=== PATIENT | female | born 1955 | race Caucasian/White ===

== ENCOUNTER 2017-11-22 20:14 | Emergency (ER) | payer MEDICAID, SELFPAY ==
[2017-11-22 20:15] VITALS: BP 156/80; PULSE 70; RESP 22; TEMP 36.6; O2SAT 99; BMI 26.8
--- NOTE | 2017-11-22 20:19 | CT_ITS ---
STUDY: CT BRAIN WITHOUT CONTRAST REASON FOR EXAM: Female, 62 years old. Facial pain. RADIATION DOSAGE (If Supplied By Facility): CTDIvol = ( 44.99 ) mGy, DLP = ( 796.11 ) mGycm TECHNIQUE: Transaxial CT imaging of the brain was performed without administration of intravenous contrast material. COMPARISON: March 16, 2015 FINDINGS: Normal soft tissue structures. Normal calvarium. There are calcifications around the carotid artery. These are noted in the cavernous carotid arteries. There is mild cerebral atrophy with widening of the extra-axial spaces and ventricular dilatation. There are areas of decreased attenuation within the white matter tracts of the supratentorial brain, consistent with microvascular disease changes. Normal basal ganglia and thalami. Normal brainstem. There is mild cerebellar atrophy. There is no intracranial hemorrhage. There are no findings of an acute ischemic infarction. Normal visualized paranasal sinuses. CT/Brain/Head without Contrast IMPRESSION: Chronic involutional changes of the brain. There are no acute findings. Electronically Signed: Claudio Ibrahim MD at 21:40 EDT , Service support ,
--- NOTE | 2017-11-22 20:19 | CT_ITS ---
STUDY: CT FACIAL BONES WITHOUT CONTRAST REASON FOR EXAM: Female, 62 years old. FALL/ FACIAL PAIN AT NOSE AND MOUTH. No LOC. Pt has hx of MS. RADIATION DOSAGE (If Supplied By Facility): CTDIvol = ( 29.38 ) mGy, DLP = ( 570.73 ) mGycm TECHNIQUE: The patient was scanned in a multi detector CT scanner. Sagittal and coronal images were reconstructed. Individualized dose optimization techniques were used for this CT. COMPARISON: None. FINDINGS: Soft tissue swelling of the right maxilla. There is no underlying fracture. Degenerative findings of the right mandibular condyle. Normal orbital laboy and orbital contents. Normal nasal bones and anterior nasal spine. Normal facial bones. There is no demonstrated fracture. Normal visualized paranasal sinuses. CT/Sinus/Facial Bone IMPRESSION: Soft tissue swelling of the right maxilla. There is no underlying fracture. Degenerative findings of the right mandibular condyle. No nasal bone fracture. Electronically Signed: Claudio Ibrahim MD at 21:39 EDT , Service support ,
--- NOTE | 2017-11-22 20:35 | RAD_ITS ---
STUDY: X-RAY - RIGHT HAND REASON FOR EXAM: Female, 62 years old. FALL PAIN TECHNIQUE: 3 view(s) of the hand. COMPARISON: None. FINDINGS: Normal radiocarpal articulation. Normal distal radioulnar joint. Normal visualized carpal bones. Normal carpal articulations There is degenerative arthrosis of the carpometacarpal articulation of the thumb with lateral subluxation of the first metacarpus. Normal second through fifth carpometacarpal joints. Nondisplaced fracture base of the fifth metacarpal bone. There is degenerative arthrosis of the metacarpophalangeal (MCP) joints. Normal interphalangeal joint of the thumb. Normal proximal and distal phalanges of the thumb. Normal metacarpophalangeal joints of the second through fifth fingers. Normal proximal and distal interphalangeal joints of the second through fifth fingers. Normal phalanges of the second through fifth fingers. The soft tissue structures are unremarkable. RAD/Hand Min 3 Views IMPRESSION: Nondisplaced fracture base of the fifth metacarpal bone. Electronically Signed: Claudio Ibrahim MD at 20:59 EDT , Service support ,
[2017-11-22 21:54] VITALS: BP 162/92; PULSE 73; RESP 18; O2SAT 95
--- NOTE | 2017-11-22 22:15 | ED.DCSUM_ITS ---
- ER Visit Summary Date of Service: 11/22/17 Chief Complaint: Fall History of Present Illness: The patient is a 62 F [facility] and [facility] right side. She denies loss of consciousness. Patient complains of pain to her face and upper lip. She complains of pain to her right hand. She does state her head feels somewhat foggy. She did not lose consciousness. She has had no nausea or vomiting. Injury occurred 3-1/2 hours prior to my evaluation. Patient is not on any anticoagulants. Physical Examination: Vital signs reveal blood pressure 162/92, otherwise unremarkable. Head neck examination reveals mild edema and early ecchymosis just inferior to the right eye. Extraocular movements are fully intact. She has edema of the right upper lip with some abrasions. Teeth are stable. She has no C-spine tenderness. Heart is regular rate and rhythm. Lung sounds are clear. Abdomen is soft and nontender. Extremity examination is significant for right upper extremity which reveals tenderness and edema over the fifth metacarpal. There is no tenderness at the wrist, elbow, or shoulder. Neuro exam is unremarkable and nonfocal. Test Results: CT scan of the head shows chronic involutional changes. CT the facial bones show soft tissue swelling over the right maxilla. There is no underlying fracture. Right hand x-rays reveal nondisplaced fracture at the base of the fifth metacarpal bone. Emergency Department Course and Treatment: Patient is given Gassaway for pain. Right hand is placed in AP Ortho-Glass splint. She will follow-up with Dr. Varela who she has seen previously. She is given a prescription for Gassaway for pain control. Treatment Plan: [] Disposition: Discharge Impression: 1. Mechanical fall 2. Facial abrasions 3. Right hand fracture status post splint 4. Closed head injury This note was generated with [employer] dictation software. It may contain incorrect words, spelling, and punctuation that were not noted in review of the chart prior to signing ED Disposition - Plan for ED Patient: Disposition: Home or Assisted Living Chief Complaint: Fall Instructions: ED Mechanical Fall, ED Fx Hand Closed, ED Head Injury Closed Prescriptions: Hydrocodone Bitart/Apap 5-325 [[place] 5/325] 1 - 2 tablet PO Q6H PRN PRN 3 Days # 12 tablet PRN Reason: Pain Referrals: Danny Varela MD [STAFF PHYSICIAN] - 5-7 Days Susanna Sanderson MD [Primary Care Provider] -
--- NOTE | 2017-11-22 22:15 | ED.DEP ---
ED Disposition - Plan for ED Patient: Disposition: Home or Assisted Living Chief Complaint: Fall Instructions: ED Mechanical Fall, ED Fx Hand Closed, ED Head Injury Closed Prescriptions: Hydrocodone Bitart/Apap 5-325 [[place] 5/325] 1 - 2 tablet PO Q6H PRN PRN 3 Days #12 tablet PRN Reason: Pain Referrals: Susanna Sanderson MD [Primary Care Provider] - Danny Varela MD [STAFF PHYSICIAN] - 5-7 Days
--- NOTE | 2017-11-22 22:18 | DCINST.ED_ITS ---
ED Disposition - Plan for ED Patient: Disposition: Home or Assisted Living Chief Complaint: Fall Instructions: ED Mechanical Fall, ED Fx Hand Closed, ED Head Injury Closed Prescriptions: Hydrocodone Bitart/Apap 5-325 [[place] 5/325] 1 - 2 tablet PO Q6H PRN PRN 3 Days # 12 tablet PRN Reason: Pain Referrals: Susanna Sanderson MD [Primary Care Provider] - Danny Varela MD [STAFF PHYSICIAN] - 5-7 Days
[2017-11-22] MEDS: HYDROcodone Bitartrate/Apap 5/325 Tablet PO ×2 (22:43)
== END 2017-11-22 22:44 | disposition home or self-care (01) ==
PROVIDERS: Emergency Provider Emergency Medicine; Family Provider Internal Medicine; PCP Internal Medicine
DX: S62.346A Nondisplaced fracture of base of fifth metacarpal bone, right hand, initial encounter for closed fracture (principal); S00.81XA Abrasion of other part of head, initial encounter; S09.90XA Unspecified injury of head, initial encounter; I10 Essential (primary) hypertension; G35 Multiple sclerosis; Z85.810 Personal history of malignant neoplasm of tongue; Z87.891 Personal history of nicotine dependence; Z79.899 Other long term (current) drug therapy; W01.0XXA Fall on same level from slipping, tripping and stumbling without subsequent striking against object, initial encounter; Y93.01 Activity, walking, marching and hiking; Y92.480 Sidewalk as the place of occurrence of the external cause; Y99.8 Other external cause status
CPT/HCPCS: 29125; 70450; 70486; 73130; 99283

== ENCOUNTER → 2017-11-27 16:46 | Outpatient (CLI) | payer MEDICAID, SELFPAY ==
--- NOTE | 2017-11-27 17:17 | MRI_ITS ---
MR Brain WO/W Contrast INDICATION: MS f/u no new complaints COMPARISON: January 30, 2017 TECHNIQUE: Multiplanar multisequence MRI examination of the brain without and with IV contrast. 7 mL of Gadavist were given intravenously. FINDINGS: There is no evidence of restricted diffusion to suggest acute infarction or active MS lesion. The ventricular system is stable in size. Few ovoid T2/FLAIR signal hyperintensities in the periventricular white matter as well as confluent periventricular FLAIR signal hyperintensities and a few punctate subcortical signal hyperintensities are stable. No new lesions are identified. Infratentorial brain parenchyma demonstrates normal signal. The corpus callosum appears thin. There is no evidence of mass effect, midline shift, or abnormal extra-axial collection. After contrast administration, there is no abnormal parenchymal or extra-axial enhancement identified. Flow voids of the [place] vascularity are well seen. Paranasal sinuses and mastoid air cells are clear. MRI/Brain W/WO Contrast IMPRESSION: Stable supratentorial burden of predominantly periventricular demyelinating plaque in this patient with given history of multiple sclerosis. No new or active lesions are identified. at 2209 Reported and signed by: Dior Madison MD Electronically Signed: Dior Madison MD at 22:07 EDT Tel , Service support ,
== END ==
PROVIDERS: Family Provider Internal Medicine; PCP Internal Medicine; Visit Provider Nurse Practitioner Acute Care
DX: G35 Multiple sclerosis (principal); R53.1 Weakness
CPT/HCPCS: 70553

== ENCOUNTER → 2018-02-20 12:24 | Outpatient (CLI) | payer MEDICAID, SELFPAY ==
--- NOTE | 2018-02-20 12:26 | BI_ITS ---
MAMMOGRAPHY - BILATERAL SCREENING REASON FOR EXAM: Female, 62 years old. Routine annual screening examination. PERTINENT HISTORY: Mother with breast cancer. TECHNIQUE: Digital bilateral breast amber (3D mammographic acquisition) in the CC and MLO projections. 2-D mediolateral oblique (MLO) and craniocaudad (CC) views of both breasts were obtained. CAD: Full Field Digital Mammography with Computer Added Detection was performed. COMPARISON: Comparison is made with prior examination dated March 12, 2017. FINDINGS: Breast Composition: There are scattered areas of fibroglandular density. There are no dominant masses or suspicious calcifications. No other significant abnormalities are identified. There has been no significant change since the prior study. BI/SCREENING MAMM (CAD), BILAT IMPRESSION: Stable bilateral screening mammogram. Yearly follow-up mammogram recommended. (A) ASSESSMENT CATEGORY: BIRADS Category 1: Negative. A letter regarding these results will be sent to the patient by the facility within 30 days. Approximately 10% of breast cancers are not detected by mammography. A normal mammogram should not delay biopsy of a clinically suspicious abnormality. [id number] Electronically Signed: Manohar Drummond MD at 15:26 EDT Tel [phone], Service support ,
== END ==
PROVIDERS: Family Provider Internal Medicine; PCP Internal Medicine; Visit Provider Psychiatry & Neurology Neurology
DX: Z12.31 Encounter for screening mammogram for malignant neoplasm of breast (principal)
CPT/HCPCS: 77063; 77067

== ENCOUNTER 2018-04-24 10:00 | Outpatient (RCR) | payer MEDICAID, SELFPAY ==
--- NOTE | 2018-03-26 15:31 | HP.PTEVAL_ITS ---
Patient's Visit Information KRISTI MONTEIRO is a 62 year old F referred to Physical Therapy by DANA Baez with a diagnosis of ACUTE PAIN L SHOULDER, FREQUENT FALLS AND MULTIPLE SCLEROSIS. Date of Evaluation: 03/26/18 Physical Therapist: Judit Pelayo - Visit Plan Frequency: 2-3x /Week Duration: 4-6 Weeks Plan: *FALL RISK*. PT 2X'S A WEEK (ONE TIME A WEEK IN THE POOL AND ONE TIME A WEEK ON LAND) FOR DEVON UE AND LE ROM, STRETCHING AND STRENGTHENING. DLS WITH A NEUTRAL SPINE. GAIT AND BALANCE TRAINING AND LEFT SHOULDER MODALIITES NEEDED. - Subjective Subjective: Work/Leisure: UNEMPLOYEED. Disability: YES - MS. Present symptoms : LEFT SHOULDER PAIN, LOW BACK PAIN, LEG WEAKNESS AND FREQUENT FALLS. Present since: CHRONIC BUT LEFT SHOULDER PAIN STARTED PREVENTING HER FROM BEING ABLE TO SWIM ABOUT 4 MONTHS AGO. Pain Scale: LEFT SHLD - WORST 3/10, LEAST 1/10. Currently: 210. Commenced as a result of: MULTIPLE FALLS. Symptoms at onset : LEFT SHOULDER. Worse: ROTATING MY ARM, LIFTING THINGS HIGHER THAN HEAD, CLEANING THINGS EVEN BELOW SHOULDER BECAUSE OF THE ROTATION, GETTING IN CUPBOARDS. Better: INFLAMMATION MEDICATION, ICE AND RESTING IT. Disturbed sleep: YES BUT NOT BECAUSE OF SHOULDER. Previous history/Previous treatment: DENIES HISTORY OF LEFT SHOULDER PROBLEMS. NO L SHLD SX. NO L SHLD INJECTION. NO L SHLD PT. Gait: IMBALANCED. LEG WEAKNESS. THE CANE HELPS. HASN'T BEEN USING WALKER. PATIENT REPORTS THE CANE IS ENOUGH FOR HER AND SHE DOES NOT WANT TO USE THE WALKER. SHE REPORTS WHEN SHE DOESN'T WATCH THE GROUND THAT IS WHEN SHE GETS INTO TROUBLE. Accidents: FALLS. Unexplained weight loss: NO. Imaging: PATIENT REPORTS SHE WAS SUPPOSE TO GO IN AND GET AN X-RAY ON HER SHOULDER BUT SHE JUST DIDN'T GO. PMH: MS, HTN, OSTEOPENIA. Recent major surgery: RIGHT THR. OTHER: PATIENT REPORTS HER SHOULDER IS GETTING BETTER AND HER BIGGEST CONCERN IS HER BACK PAIN, LEG WEAKNESS AND FALLING. ALTHOUGH SHE STATES SHE TRIED TO SWIM AND COULDN'T BECAUSE OF HER SHOULDER PAIN. HASN'T TRIED TO SWIM FOR ABOUT A MONTH AND THINKS IT WILL GO BETTER NOW. - Objective Sitting/Standing Posture: POOR. Lordosis: INCREASED. Active Correction of posture: BETTER. Other Observations: INDEP GAIT INTO PT WITH STRAIGHT CANE WITHOUT LOB. PATIENT IS ABLE TO TRANSFER FROM SIT TO STAND INDEP'LY WITHOUT THE USE OF HER UE'S. SHE IS ONLY ABLE TO SLS ON EA LE WITHOUT UE ASSIST FOR ABOUT 3- 5 SECONDS. Motor deficit: DEVON UE STRENGTH GROSSLY 4/5 WITH MMT'ING. DEVON LE STRENGTH IS ALSO GROSSLY 4-5/5 WITH MMT'ING. Sensory deficit: DEVON UE LIGHT TOUCH SENSATION APPEARS INTACT BUT PATIENT REPORTS MORE RIGHT LE TINGLING THAN LEFT AND STATES IT HAS ALWAYS BEEN THAT WAY. ROM deficit: DEVON UE AND LE ROM WFL AND PATIENT DENIES INCREASED PAIN WITH ROM TESTING. SHE HAS LEFT SHOULDER ROM WFL IN BOTH SITTING AND SUPINE. SHE DOES HAVE TIGHT DEVON HS'S RIGHT > LEFT. Lumbar mvmt loss: flex - MIN. ext - MOD. R SG - VANESSA. L SG - VANESSA. MILD INCREASE LOW BACK PAIN WITH LUMBAR ROM TESTING ALL PLANES. Core strength: POOR. Palpation: PATIENT HAS A LITTLE BIT OF INCREASED PAIN ALONG THE SPINE OF THE LEFT SCAPULAE COMPARED TO THE LEFT BUT OTHERWISE NO ACUTE LEFT SHOULDER TENDERNESS. CERVICAL MVMT LOSS: FLEX - NIL, PRO - NIL, DEVON SB - MOD, DEVON ROT - MOD, EXT - MOD, RET - VANESSA. PATIENT WITH C/O A LITTLE BIT OF INCREASED LEFT SHOULDER PAIN WITH RIGHT CERVICAL SB TESTING. OTHER: STATIC STANDING BALANCE IS FAIR AND DYNAMIC BALANCE IS FAIR MINUS. - Goals Goal 1:: DECREASE C/O LEFT SHOULDER PAIN Goal Time Frame: 4-6 Weeks Goal 2:: INDEP AND SAFTE GAIT ON ALL SURFACES WITH LEAST ASSITIVE DEVICE. Goal Time Frame: 4-6 Weeks Goal 3:: INCREASE LIFTING AND REACHING FUNCTION WITH LEFT UE. Goal Time Frame: 4-6 Weeks Goal 4:: INDEP LAND HEP AND WATER EX PROGRAM. Goal Time Frame: 4-6 Weeks - Rehabilitation Potential Rehabilitation Potential: Fair - Anticipated Interventions Patient/Client Instruction: Educate patient on: Condition, Plan of Care, Risk Factors, Benefits of Fitness Program For the Purpose of:: To improve self management Therapeutic Exercise to Include: Strength training, Balance training, Body mechanics, Postural training, Flexibilty training, In an aquatic setting, Dynamic Lumbar Stabilization, Scapular Strength/Stabilization For the Purpose of:: To decrease pain, To improve muscle performance and motor function, To increase tolerance to activity/condition/position, To improve ability of physical actions for home/community/work/leisure, To improve gait and locomotor functions Cryotherapy (ice pack, ice massage): Yes Thermo therapy (hot pack): Yes Ultrasound (thermal/non thermal): Yes For the Purpose of:: To decrease pain, To improve nutrient delivery to tissue Thank you for the opportunity to evaluate your patient. For Medicare and Medicare HMO plans, please review the plan of care and approve it. It will need to be FAXED BACK to us at [phone] for Medicare purposes. Please let me know if there are questions or concerns regarding this plan of care. Physician Signature: Date:
--- NOTE | 2018-04-24 10:33 | HP.PTDCSUM ---
HP - PT D/C Summary It has been my pleasure to treat KRISTI MONTEIRO under orders from KILO BaezC, for the diagnosis of ACUTE PAIN L SHOULDER, FREQUENT FALLS AND MULTIPLE SCLEROSIS for a total of 9 visit(s). Discharge Date: Please see the following information for a summary of their discharge status. - Subjective Subjective: PATIENT REPORTS SHE IS STRONGER. SHE STATES HER CORE IS STRONGER. SHE ALSO STATES SHE HAS MORE ENDURANCE AND HER SHOULDER IS REALLY GOOD. SHE REPORTS SHE REALLY ISN'T HAVING ANY LIMITATIONS WITH HER SHOULDER NOW. SHE STATES HER BALANCE IS STILL AN ISSUE BUT SHE KNOWS IT IS ALWAYS GOING TO BE. NO FALLS SINCE STARTING PT. SHE REPORTS SHE MIGHT JOIN MEMBERSHIP HERE OR AT THE DAYS INN TO CONTINUE INDEP EX. SHE ALSO HAS A HEP SHE PLANS TO CONTINUE. STILL GETTING UP TO 4/10 LEFT BACK, HIP AND NECK PAIN WHEN SHE LIES DOWN AND STRETCHES AT ITS WORST. - Pain L shouldr Pain Intensity (Out of 10): 0 LEFT LB Pain Intensity (Out of 10): 0 RIGHT WRIST Pain Intensity (Out of 10): 0 - Overall Improvement % Improvement: 75 - Objective Objective/Function: ALL GOALS MET. DASH SCORE HAS IMPROVED FROM 49 TO 36. UPON EXAM: Lumbar mvmt loss: flex - NIL. ext - MOD. R SG - VANESSA. L SG - MOD. PATIENT DENIES INCREASED BACK OR HIP PAIN WITH LUMBAR ROM TESTING ALL PLANES. Core strength: POOR. Palpation: PATIENT DENIES TENDERNESS WITH PALPATION THROUGH OUT HER SPINE, SHOULDERS OR HIPS. CERVICAL MVMT LOSS: FLEX - NIL, PRO - NIL, DEVON SB - MOD BUT RIGHT MORE LIMITED THAN LEFT. DEVON ROT - MOD BUT AGAIN RIGHT MORE LIMITED THAN LEFT. EXT - MOD, RET - VANESSA. PATIENT DENIES INCREASED PAIN WITH CERVICAL ROM TESTING TODAY. OTHER: STATIC STANDING BALANCE IS FAIR AND DYNAMIC BALANCE IS FAIR MINUS. PATIENT STILL REQUIRES AT LEAST CANE FOR SAFETY AND WOULD BE MORE SAFE WITH A WALKER BUT PATIENT REFUSING AT THIS POINT. STATES SHE DOESN'T EVEN USE HER CANE IN THE HOUSE. - Goals Goal 1:: DECREASE C/O LEFT SHOULDER PAIN Goal Progress: Goal Met Goal 2:: INDEP AND SAFTE GAIT ON ALL SURFACES WITH LEAST ASSITIVE DEVICE. Goal Progress: Goal Met Goal 3:: INCREASE LIFTING AND REACHING FUNCTION WITH LEFT UE. Goal Progress: Progressing Goal 4:: INDEP LAND HEP AND WATER EX PROGRAM. Goal Progress: Goal Met - Plan Plan: D/C TO INDEP EX. PATIENT AGREEABLE. - D/C Information If there are questions or concerns regarding this patient's physical therapy, please feel free to call me at [phone]. Thank you for the referral of this patient. Sincerely, Judit Pelayo
== END 2018-04-24 15:53 | disposition home or self-care (01) ==
LOC: PT 10:00
PROVIDERS: Family Provider Internal Medicine; PCP Internal Medicine; Visit Provider Nurse Practitioner
DX: M25.512 Pain in left shoulder (principal); R29.6 Repeated falls; G35 Multiple sclerosis
CPT/HCPCS: 97110; 97113; 97163; 97164

== ENCOUNTER → 2019-02-24 | Outpatient (CLI) | payer MEDICAID, SELFPAY ==
--- NOTE | 2019-02-24 16:27 | RAD_ITS ---
STUDY: X-RAY - LUMBAR SPINE REASON FOR EXAM: Female, 63 years old. Back pain TECHNIQUE: AP and lateral view(s) of the lumbar spine were obtained. COMPARISON: None FINDINGS: There is significant generalized osteopenia. There is multilevel facet bony sclerosis. There is mild compression deformity of T12. There is stimulator device within the sacrum.. There are multilevel lumbar spinal osteophytes. There is gross anatomic alignment. RAD/Lumbar Spine 2 or 3 Views IMPRESSION: Significant multilevel spondylosis Mild anterior compression deformity of T12 most likely degenerative Generalized osteopenia Stimulator device within the sacrum Electronically Signed: Kenny Car, at 17:40 EDT Tel , Service support ,
== END | disposition home or self-care (01) ==
LOC: RAD 16:22
PROVIDERS: Family Provider Internal Medicine; PCP Internal Medicine; Referring Provider Anesthesiology Pain Medicine; Visit Provider Anesthesiology Pain Medicine
DX: M54.5 Low back pain (principal)
CPT/HCPCS: 72100

== ENCOUNTER → 2019-02-25 | Outpatient (CLI) | payer MEDICAID, SELFPAY ==
--- NOTE | 2019-02-25 13:39 | BI_ITS ---
MAMMOGRAPHY - BILATERAL SCREENING REASON FOR EXAM: Female, 63 years old. Routine annual screening examination. PERTINENT HISTORY: Mother with breast cancer. TECHNIQUE: Digital bilateral breast edilberto (3D mammographic acquisition) in the CC and MLO projections. 2-D mediolateral oblique (MLO) and craniocaudad (CC) views of both breasts were obtained. CAD: Full Field Digital Mammography with Computer Added Detection was performed. COMPARISON: Comparison is made with prior study dated February 20, 2018. FINDINGS: Breast Composition: There are scattered areas of fibroglandular density. There are no dominant masses or suspicious calcifications. No other significant abnormalities are identified. There has been no significant change since the prior study. BI/SCREEN MAMM (CAD) W/EDILBERTO BILAT IMPRESSION: Stable bilateral screening mammogram. Yearly follow-up mammogram recommended. (A) ASSESSMENT CATEGORY: BIRADS Category 1: Negative. A letter regarding these results will be sent to the patient by the facility within 30 days. Approximately 10% of breast cancers are not detected by mammography. A normal mammogram should not delay biopsy of a clinically suspicious abnormality. [id number] Electronically Signed: Manohar Drummond, at 15:18 EDT , Service support ,
== END | disposition home or self-care (01) ==
LOC: OPBI 13:37
PROVIDERS: Family Provider Internal Medicine; PCP Internal Medicine; Referring Provider Psychiatry & Neurology Neurology; Visit Provider Clinical Nurse Specialist Acute Care
DX: Z12.31 Encounter for screening mammogram for malignant neoplasm of breast (principal); G35 Multiple sclerosis; Z80.3 Family history of malignant neoplasm of breast; Z79.899 Other long term (current) drug therapy
CPT/HCPCS: 77063; 77067

== ENCOUNTER → 2019-02-26 | Outpatient (CLI) | payer MEDICAID, SELFPAY ==
[2019-02-26] VITALS (7 sets, daily range): BP systolic 127–146; BP diastolic 69–87; PULSE 58–94; RESP 16; TEMP 36.6–37.2; O2SAT 93–96; BMI 23.6
[2019-02-26] MEDS: MethylPREDNISolone 125 MG/2 ML Vial 100 MG IV (10:31)
[2019-02-26] MEDS: DiphenhydrAMINE 50 MG/ML Syringe 25 MG IV (10:35)
== END | disposition home or self-care (01) ==
LOC: MEDOUTP 09:57
PROVIDERS: Family Provider Internal Medicine; PCP Internal Medicine; Referring Provider Clinical Nurse Specialist Acute Care; Visit Provider Clinical Nurse Specialist Acute Care
DX: G35 Multiple sclerosis (principal)
CPT/HCPCS: 96365; 96366; 96375; J7050; A4216; J2350

== ENCOUNTER → 2019-03-18 08:06 | Outpatient (CLI) | payer MEDICAID, SELFPAY ==
[2019-02-26 10:25] VITALS: BMI 23.6
[2019-03-18] VITALS (8 sets, daily range): BP systolic 83–110; BP diastolic 43–60; PULSE 54–65; RESP 15–16; TEMP 36.4–36.7; O2SAT 90–94; BMI 24.3
[2019-03-18] MEDS: DiphenhydrAMINE 50 MG/ML Syringe 25 MG IV (08:44)
[2019-03-18] MEDS: MethylPREDNISolone 125 MG/2 ML Vial 100 MG IV (08:44)
== END ==
PROVIDERS: Family Provider Internal Medicine; PCP Internal Medicine; Referring Provider Clinical Nurse Specialist Acute Care; Visit Provider Clinical Nurse Specialist Acute Care
DX: G35 Multiple sclerosis (principal)
CPT/HCPCS: 96365; 96366 ×2; 96367; J7040; J7050; J2350

== ENCOUNTER → 2019-04-08 | Outpatient (CLI) | payer MEDICAID, SELFPAY ==
[2019-03-18 08:21] VITALS: BMI 24.3
--- NOTE | 2019-04-08 12:11 | RAD_ITS ---
STUDY: X-RAY - LUMBAR SPINE REASON FOR EXAM: Female, 63 years old. Fell 3 weeks ago, pain TECHNIQUE: 3 view(s) of the lumbar spine were obtained. COMPARISON: 02/24/2019 FINDINGS: Normal alignment. No fractures are seen. Lower lumbar facet disease. Heights of disc spaces are maintained. Sacral stimulator. Right hip arthroplasty. RAD/Lumbar Spine 2 or 3 Views IMPRESSION: No acute osseous injury is evident. Comment: If there is further clinical concern for a radiographically occult spinal fracture, consider CT correlation if possible. Electronically Signed: Rod Dai MD at 13:42 EDT Tel , Service support ,
--- NOTE | 2019-04-08 12:11 | RAD_ITS ---
STUDY: X-RAY - SACRUM/COCCYX REASON FOR EXAM: Female, 63 years old. Fell 3 weeks ago, pain while sitting TECHNIQUE: 3 view(s) of the sacrum and coccyx were obtained. COMPARISON: None. FINDINGS: Sacral stimulator. No sacral fractures are seen. No osteolytic lesions are seen. Sacroiliac joints are intact. Right hip arthroplasty. Osteitis pubis. RAD/Sacrum-Coccyx min 2 Views IMPRESSION: No significant sacral abnormality is evident. Electronically Signed: Rod Dai MD at 13:30 EDT Tel , Service support ,
[2019-04-08 14:08] LABS: Amphetamine Urine VISTA NEGATIVE (<1000 ng/mL); Barbiturate Urine VISTA NEGATIVE (< 200 ng/mL); Benzodiazepine Urine VISTA NEGATIVE (< 200 ng/mL); Cocaine Urine VISTA NEGATIVE (< 300 ng/mL); Ecstacy Urine VISTA NEGATIVE (< 500 ng/mL); Methadone Urine VISTA NEGATIVE (< 300 ng/mL); PCP Urine VISTA NEGATIVE (< 25 ng/mL); THC Urine VISTA NEGATIVE (< 50 ng/mL); Vista UDS pH Range 5
== END | disposition home or self-care (01) ==
LOC: RAD 12:09
PROVIDERS: Family Provider Internal Medicine; PCP Internal Medicine; Referring Provider Anesthesiology Pain Medicine; Visit Provider Anesthesiology Pain Medicine
DX: F11.20 Opioid dependence, uncomplicated (principal); W19.XXXA Unspecified fall, initial encounter
CPT/HCPCS: 72100; 72220; 80307

== ENCOUNTER 2019-04-09 20:04 | Emergency (ER) | payer MEDICAID, SELFPAY ==
[2019-03-18 08:21] VITALS: BMI 24.3
[2019-04-09 20:05] VITALS: BP 159/82; PULSE 76; RESP 16; TEMP 36.4; O2SAT 97; BMI 23.8
[2019-04-09 20:22] VITALS: RESP 16
--- NOTE | 2019-04-09 20:55 | RAD_ITS ---
STUDY: X-RAY - RIGHT WRIST REASON FOR EXAM: Female, 63 years old. Pain TECHNIQUE: 3 view(s) of the wrist were obtained. COMPARISON: None. FINDINGS: Normal visualized distal radius and ulna. Normal radiocarpal articulation. Normal distal radioulnar articulation. Nonvisualization of the trapezium. Increasing wedge compression of the lunate. Normal carpal articulations. Normal second through fifth carpometacarpal articulations. Status post ORIF of the fifth metacarpus for a mid shaft fracture. Stable degenerative spurring at the base of the first metacarpus. The soft tissue structures are unremarkable. RAD/Wrist min 3 Views IMPRESSION: No acute bone injury. Increasing wedge compression of the lunate since the previous study. Interval ORIF of the left metacarpus. Electronically Signed: Wing Hrao DO at 21:20 EDT Tel [phone], Service support ,
[2019-04-09] MEDS: HYDROcodone Bitartrate/Apap 5/325 Tablet PO (20:59)
--- NOTE | 2019-04-09 22:14 | ED.DCSUM_ITS ---
History of Present Illness Chief Complaint: Upper Extremity Injury Detail of Chief Complaint: Right wrist injury Informant: Patient, Family Onset: Today Current Severity: Mild Maximum Severity: Mild Narrative: Patient has a history of MS. She states she lost her balance today and fell, injuring her right wrist. She recently had a right hand fracture requiring surgery with Dr. Varela at the [facility]. She is right-hand dominant. - Past Medical History (1) Multiple sclerosis Status: Chronic (2) Depression Status: Chronic (3) Hypertension Status: Chronic (4) Osteoarthritis Status: Chronic Past Medical History - Allergies and Home Meds Allergies/Adverse Reactions: Allergies alendronate sodium [From Fosamax] Adverse Reaction (Verified 04/09/19 20:10) Hives lisinopril Adverse Reaction (Verified 01/29/17 17:13) Other COUGHING Primary Care Physician: Danny Varela MD [STAFF PHYSICIAN] - 1 Week if not improving Susanna Sanderson MD [Primary Care Provider] - Prior records reviewed: Yes Past Medical History: - - Reviewed Surgical History: total hip arthroplasty, - - Carpal tunnel surgery. foot, tongue surgery Lives: Spouse/ Significant Other Smoking Status: Former smoker - Family History Maternal Family History: Reports: - - breast cancer Paternal Family History: Reports: No pertinent history Review of Systems General: Denies: Chills, Fever Eyes: Denies: Visual changes - bilaterally ENT: Denies: Bilateral ear pain Cardiovascular: Denies: Chest pain Respiratory: Denies: Dyspnea Musculoskeletal: Reports: Arthralgias, Extremity Pain. Denies: Myalgias Skin: Denies: Abrasions, Wounds Neurological: Denies: Headache Hematologic: Denies: Easy bruising Allergy: Denies: Uticaria Physical Exam Vital Signs/Narrative: Vital Signs Temp Pulse Resp BP Pulse Ox 04/09/19 20:22 16 04/09/19 20:05 97.6 F L 76 16 159/82 H 97 Inital Vital Signs reviewed: Yes General: Well nourished, Well developed ENT: Moist mucous membranes Neck: Supple Cardiovascular: Regular rate, Regular rhythm Respiratory: No distress, CTA bilaterally Abdomen: Soft, Nontender Extremities: Tenderness - Tenderness palpation around the radial acid of the right wrist. Well-healed surgical incision over the fifth metacarpal. Normal cap refill distally and can wiggle fingers. No tenderness of the elbow or shoulder. Skin: Normal color Neurological: Alert, Oriented x3 Psychological: Normal affect Diagnostic/Tx/Re-eval Impressions Wrist X-Ray 04/09/19 20:55 IMPRESSION: No acute bone injury. Increasing wedge compression of the lunate since the previous study. Interval ORIF of the left metacarpus. Electronically Signed: Wing Haro DO at 21:20 EDT Tel [phone], Service support , 04/09/19 20:55 Wrist min 3 Views [RAD] Stat - Medical Decision Making Test results discussed with the patient. She was given 1 tab of [place] here. She is placed in a Velcro wrist splint. She will follow-up with Dr. Varela, her orthopedist if not improving. ED Disposition - Plan for ED Patient: Disposition: Home or Assisted Living Diagnosis: Right wrist sprain Instructions: Wrist Sprain Referrals: Susanna Sanderson MD [Primary Care Provider] - Danny Varela MD [STAFF PHYSICIAN] - 1 Week if not improving
[2019-04-09 22:35] VITALS: RESP 16
== END 2019-04-09 23:02 | disposition home or self-care (01) ==
PROVIDERS: Emergency Provider Emergency Medicine; Family Provider Internal Medicine; PCP Internal Medicine
DX: S63.501A Unspecified sprain of right wrist, initial encounter (principal); G35 Multiple sclerosis; I10 Essential (primary) hypertension; M19.90 Unspecified osteoarthritis, unspecified site; Z87.891 Personal history of nicotine dependence; W18.30XA Fall on same level, unspecified, initial encounter; Y93.89 Activity, other specified; Y92.009 Unspecified place in unspecified non-institutional (private) residence as the place of occurrence of the external cause; Y99.8 Other external cause status
CPT/HCPCS: 73110; 99283

== ENCOUNTER 2019-04-12 13:57 | Emergency (ER) | payer MEDICAID, SELFPAY ==
[2019-04-12 13:59] VITALS: BP 140/76; PULSE 72; RESP 16; TEMP 36.7; O2SAT 95; BMI 23.7
--- NOTE | 2019-04-12 14:39 | CT_ITS ---
STUDY: CT BRAIN WITHOUT CONTRAST REASON FOR EXAM: Female, 63 years old. Fall. Multiple sclerosis. Tongue cancer. RADIATION DOSAGE (If Supplied By Facility): CTDIvol = ( 44.99 ) mGy, DLP = ( 812.98 ) mGycm TECHNIQUE: Transaxial CT imaging of the brain was performed without administration of intravenous contrast material. Individualized dose optimization techniques were used for this CT. COMPARISON: 11/22/2017 FINDINGS: Normal soft tissue structures. Normal calvarium. There is mild cerebral atrophy with widening of the extra-axial spaces and ventricular dilatation. There are areas of decreased attenuation within the white matter tracts of the supratentorial brain, consistent with microvascular disease changes. Normal basal ganglia and thalami. Normal brainstem. There is mild cerebellar atrophy. There is no intracranial hemorrhage. There are no findings of an acute ischemic infarction. Normal visualized paranasal sinuses. CT/Brain/Head without Contrast IMPRESSION: No change in the abnormality. Mild atrophy and White matter disease. Electronically Signed: Christopher Helms MD at 16:00 EDT , Service support ,
[2019-04-12 15:02] LABS: Absolute Lymphocyte Count 0.31 X10^3/uL (0.83-4.51); Absolute Neutrophil Count 3.6 X10^3/uL (2.0-7.7); Basophil# 0.02 X10^3/uL; Basophil% 0.4 % (0-1); Eosinophil# 0.17 X10^3/uL; Eosinophils% 3.7 % (0-5); Hematocrit 40.8 % (37-47); Hemoglobin 13.9 g/dL (12.0-15.0); Lymphocyte # 0.31 X10^3/ul (4.0); Lymphocyte % 6.7 % (19-41); Mean Corp Hgb Conc 34.1 g/dL (32-36); Mean Corpuscular Hgb 33.6 pg (27.0-32.0); Mean Corpuscular Volume 98.6 fL (81-99); Mean Platelet Vol. 10.5 fl (6.2-12.0); Monocyte# 0.51 X10^3/uL; NRBC Flagged by Analyzer 0 % (0-5); Neutrophil # 3.62 X10^3/uL (2.7-7.7); POSITIVE DIFFERENTIAL YES; Platelet Count 207 K/mm3 (150-450); RBC Distribution Width CV 12.4 % (11.6-14.6); RBC Distribution Width SD 45.1 fl (35.1-43.9); Red Blood Count 4.14 M/mm3 (4.2-5.4); White Blood Count 4.6 K/mm3 (4.4-11.0)
--- NOTE | 2019-04-12 15:10 | RAD_ITS ---
STUDY: X-RAY - RIGHT HAND REASON FOR EXAM: Female, 63 years old. Fall. Pain. TECHNIQUE: 3 view(s) of the hand. COMPARISON: 04/09/2019. FINDINGS: Since prior study, there is nondisplaced fracture through the distal radius at the junction of the radial shaft and metaphysis. Fracture is mildly comminuted and mildly impacted. No angulation. Mild shortening. Normal appearance of the visualized ulna. Severe degenerative changes throughout the carpal bones, stable. Prominent degenerative changes at the base of the thumb. Stable postsurgical changes of the fifth metacarpal. RAD/Hand Min 3 Views IMPRESSION: Interval development of slightly impacted nondisplaced nonangulated fracture of the distal radius. Electronically Signed: Christopher Helms MD at 16:24 EDT , Service support ,
[2019-04-12 15:21] LABS: Anion Gap 5 (5-15); BUN 32 mg/dL (7-18); BUN/Creat Ratio 56.2 RATIO (10-20); Calcium,Total 9.3 mg/dL (8.5-10.1); Chloride 111 mmol/L (98-107); Creatinine, Serum 0.57 mg/dL (0.55-1.02); EST Glomerular Filtration Rate 115 mL/min (>60); Est Glom Filt Rate - Afr Amer 139 mL/min (>60); Estimated Creatinine Clearance 104.55 ml/min; Glucose 88 mg/dL (74-106); Potassium 3.9 mmol/L (3.5-5.1); Sodium Level 144 mmol/L (136-145)
[2019-04-12 15:42] LABS: Differential Indicated SCAN CRITERIA MET
[2019-04-12 16:09] LABS: Differential Comment SCANNED
--- NOTE | 2019-04-12 16:27 | ED.VISSUMM ---
- ER Visit Summary Date of Service: 04/12/19 Chief Complaint: Frequent falls and right wrist pain History of Present Illness: The patient is a 63 F history of MS and hypertension. Patient has frequent falls was just seen here on the at that time x-rays of her wrist were negative. However she is fallen at least once if not several times since the and is now having more right wrist and forearm pain. Was treated to urgent care today they told her she needed a CAT scan of her head and also to be evaluated for the frequent falls. She is on no blood thinners. Has had no LOC. Physical Examination: Vital signs stable afebrile. Older female no acute distress. HEENT exam atraumatic. Pupils are reactive light. No signs of trauma to her face or scalp. C-spine nontender. Trachea midline. Lungs clear to auscultation bilaterally. Heart regular rhythm no murmur rate about 70. Chest were nontender. Abdomen soft nontender. Normal bowel sounds no peritoneal signs. Pelvic girdle intact. Left upper and both lower extremities are unremarkable nontender normal range of motion neurovascular intact. Her right wrist is tender palpation with decreased flexion extension due to pain. Hand is neurovascular intact. Skin is intact. Right elbow upper arm and shoulder are unremarkable. Back nontender. Neurologically she is awake and alert. She does have a palpable radial pulse. Test Results: Right hand x-ray 3 view shows a distal radius fracture. That was placed in a short arm AP splint. CT scan of the brain without contrast showed no acute abnormality. Chronic changes. Read by the radiologist reviewed by me. CBC normal white count of 4. Hemoglobin 13. Chemistries normal. BUN 30 creatinine 0.57. Consistent with mild dehydration. Emergency Department Course and Treatment: I went over the patient's test and x-rays with her. She was placed in a short arm AP splint. Treatment Plan: Ice and elevate right wrist. Keep the splint dry and clean. [place] for pain. Follow-up with Dr. Varela of [facility] orthopedics. Plenty of fluids and rest. Disposition: Discharge Impression: Frequent falls Acute right distal radius fracture Short arm AP splint by ER of the right wrist Mild dehydration History of MS This note was generated with [employer] dictation software. It may contain incorrect words, spelling, and punctuation that were not noted in review of the chart prior to signing ED Disposition - Plan for ED Patient: Referrals: Susanna Sanderson MD [Primary Care Provider] -
--- NOTE | 2019-04-12 16:37 | DCINST.ED_ITS ---
ED Disposition - Plan for ED Patient: Disposition: Home or Assisted Living Instructions: FRACTURE, Wrist [General] Prescriptions: Hydrocodone Bitart/Apap 5-325 [[place] 5MG-325MG] 1 - 2 tab PO Q4H PRN PRN 5 Days #20 tab PRN Reason: Pain Prescription Printed Referrals: Danny Varela MD [STAFF PHYSICIAN] - Clarissa Fernando DO [STAFF PHYSICIAN] - As soon as possible Additional Instructions: You have a broken right distal radius. This was placed in an AP splint. Keep the splint dry and clean. Ice and elevate to decrease the swelling. [place] for pain. 1 to 2 pills every 6 hours for pain. Call and follow-up with either Dr. Varela or for orthopedic care. They may need to place a cast on this or even do orthopedic surgery on the broken bone.
== END 2019-04-12 16:50 | disposition home or self-care (01) ==
PROVIDERS: Emergency Provider Emergency Medicine; Family Provider Internal Medicine; PCP Internal Medicine
DX: M25.531 Pain in right wrist (principal); S52.591A Other fractures of lower end of right radius, initial encounter for closed fracture; R29.6 Repeated falls; E86.0 Dehydration; G35 Multiple sclerosis; I10 Essential (primary) hypertension; Z79.899 Other long term (current) drug therapy; W18.30XA Fall on same level, unspecified, initial encounter; Y93.89 Activity, other specified; Y92.89 Other specified places as the place of occurrence of the external cause; Y99.8 Other external cause status
CPT/HCPCS: 29125; 70450; 73130; 80048; 85025; 99283; A4216

== ENCOUNTER → 2019-04-16 | Outpatient (CLI) | payer MEDICAID, SELFPAY ==
[2019-04-16 14:44] VITALS: BMI 23.7
--- NOTE | 2019-04-16 15:06 | RAD_ITS ---
STUDY: X-RAY - RIGHT WRIST REASON FOR EXAM: Female, 63 years old. Fracture. Pain. TECHNIQUE: 3 view(s) of the wrist were obtained. COMPARISON: Right hand radiographs 04/12/2019. FINDINGS: Interval casting and closed reduction of the distal radial fracture. Alignment is similar to previous. No new fractures are evident. Previous ORIF mid shaft fifth metacarpal fracture and prominent degenerative changes particularly of the first CMC joint again demonstrated. RAD/Wrist min 3 Views IMPRESSION: Interval casting and closed reduction of the distal radial fracture. Electronically Signed: Nick Steven, at 21:28 EDT Tel , Service support ,
== END | disposition home or self-care (01) ==
LOC: HPRAD 15:05
PROVIDERS: Family Provider Internal Medicine; PCP Internal Medicine; Referring Provider Physician Assistant; Visit Provider Physician Assistant
DX: M25.531 Pain in right wrist (principal)
CPT/HCPCS: 73110

== ENCOUNTER → 2019-04-23 | Outpatient (CLI) | payer MEDICAID, SELFPAY ==
[2019-04-16 14:44] VITALS: BMI 23.7
--- NOTE | 2019-04-23 08:53 | RAD_ITS ---
STUDY: X-RAY - RIGHT WRIST REASON FOR EXAM: Female, 63 years old. Follow-up fracture. TECHNIQUE: 3 view(s) of the wrist were obtained. COMPARISON: April 16, 2019. FINDINGS: There appears be mildly increased, moderate displacement of the distal radial fracture when compared to prior study. This may be projectional. There is no evidence of callus formation. There is degenerative arthrosis of the radiocarpal articulation. Normal distal radioulnar articulation. Normal carpal bones. There is degenerative arthrosis of the carpal articulations. Normal carpometacarpal articulation of the thumb. Normal second through fifth carpometacarpal articulations. Normal visualized Versed for metacarpal bones. Again seen are screws transfixing the mid shaft of the fifth metacarpal. A semiopaque cast surrounds the hand and wrist. RAD/Wrist min 3 Views IMPRESSION: Question slightly increased displacement of the distal radial fracture when compared to prior study. Remainder of the findings are stable. Electronically Signed: Jorge Rodney DO at 20:45 EDT Tel [phone], Service support ,
--- NOTE | 2019-05-14 13:58 | RAD_ITS ---
STUDY: X-RAY - RIGHT WRIST REASON FOR EXAM: Pain. TECHNIQUE: 3 view(s) of the wrist were obtained. COMPARISON: Radiographs 05/07/2019. FINDINGS: There is osteopenia. There is an intact orthopedic plate and screws transfixing a distal radial fracture in anatomic alignment position with early callus formation. Normal radiocarpal articulation. Normal distal radioulnar articulation. There is widening of the scapholunate interval as on the prior study. There is resection arthroplasty of the carpometacarpal articulation of the thumb. Normal second through fifth carpometacarpal articulations. There are 2 screws transfixing a healing fifth metacarpal diaphyseal fracture. There is soft tissue swelling. RAD/Wrist min 3 Views IMPRESSION: No interval change in alignment or position of ORIF of distal radial fracture. Electronically Signed: Cody Sandra MD at 15:29 EDT Tel , Service support ,
== END | disposition home or self-care (01) ==
LOC: HPRAD 08:53
PROVIDERS: Family Provider Internal Medicine; PCP Internal Medicine; Referring Provider Physician Assistant; Visit Provider Physician Assistant
DX: S52.501A Unspecified fracture of the lower end of right radius, initial encounter for closed fracture (principal)
CPT/HCPCS: 73110

== ENCOUNTER 2019-04-29 08:56 | Day surgery (SDC) | payer MEDICAID, SELFPAY ==
[2019-04-23 09:06] VITALS: BMI 23.7
[2019-04-29] VITALS (14 sets, daily range): BP systolic 109–184; BP diastolic 57–88; PULSE 63–86; RESP 14–16; TEMP 36.3–37.1; O2SAT 89–99; BMI 23.8
--- NOTE | 2019-04-29 09:11 | EKG12_ITS ---
Test Reason : PRE OP Blood Pressure : / mmHG Vent. Rate : 062 BPM Atrial Rate : 062 BPM P-R Int : 186 ms QRS Dur : 100 ms QT Int : 436 ms P-R-T Axes : 034 -15 024 degrees QTc Int : 442 ms Normal sinus rhythm Voltage criteria for left ventricular hypertrophy Abnormal ECG When compared with ECG of 08-JUN-2015 06:34, No significant change was found Confirmed by KI SUMMERS, JESÚS ([id number]), editor magazine MANDA WEBB ([id number]) on 05/01/2019 2:30:42 PM Referred By: Clarissa Fernando Confirmed By:JESÚS EMERSON MD
--- NOTE | 2019-04-29 09:53 | HP.PCM_ITS ---
History and Physical I have re-examined the patient. There are no clinical changes since date of exam. Intake Vital Signs 04/23/19 Body Mass Index (BMI) 23.7 Intake Visit Reasons: right wrist Chief Complaint: OCREVUS Allergies alendronate sodium [From Fosamax] Adverse Reaction (Verified 04/16/19 14:43) Hives lisinopril Adverse Reaction (Verified 04/16/19 14:43) Other Medications Amlodipine [Norvasc] 10 mg PO DAILY 05/24/14 [History Confirmed 04/23/19] Baclofen 20 mg PO BREAKFAST 05/24/14 [History Confirmed 04/23/19] Lamotrigine 200 mg PO DAILY 05/24/14 [History Confirmed 04/23/19] Losartan Potassium [Cozaar] 50 mg PO BID 05/24/14 [History Confirmed 04/23/19] Venlafaxine HCl [Effexor] 75 mg PO BREAKFAST 12/17/14 [History Confirmed 04/23/19] Ascorbic Acid [Vitamin C] 1,000 mg PO DAILY@0800 06/08/15 [History Confirmed 04/23/19] Calcium Carbonate/Vitamin D3 [Calcium 600-Vit D3 800 Caplet] 1 ea PO DAILY 06/08/15 [History Confirmed 04/23/19] Cholecalciferol (Vitamin D3) [Vitamin D3] 5,000 unit PO DAILY 06/08/15 [History Confirmed 04/23/19] Coconut Oil 1,000 mg PO DAILY 06/08/15 [History Confirmed 04/23/19] Cyanocobalamin (Vitamin B-12) [Vitamin B-12] 1,000 mcg PO DAILY 06/08/15 [History Confirmed 04/23/19] Potassium 99 mg PO DAILY 06/08/15 [History Confirmed 04/23/19] Pramipexole Di-HCl [Mirapex] 1 - 2 mg PO QHS PRN 06/08/15 [History Confirmed 04/23/19] Acetaminophen [Tylenol] 325 mg PO PRN PRN 01/29/17 [History Confirmed 04/23/19] Cetirizine HCl [Allergy Relief] 10 mg PO QHS 01/29/17 [History Confirmed 04/23/19] Clonidine HCl 1 tab PO 1100 01/29/17 [History Confirmed 04/23/19] Clonidine HCl [Catapres] 0.2 mg PO QHS 01/29/17 [History Confirmed 04/23/19] Esomeprazole Magnesium 20 mg PO BID 01/29/17 [History Confirmed 04/23/19] Iron Carbonyl [Feosol] 65 mg PO DAILYCM 01/29/17 [History Confirmed 04/23/19] Meloxicam [Mobic] 1 tab PO BID 01/29/17 [History Confirmed 04/23/19] D-Mannose 500 mg PO DAILY 11/22/17 [History Confirmed 04/23/19] Docusate Sodium [Colace] 100 mg PO BID 11/22/17 [History Confirmed 04/23/19] Glucosamine/MSM/Chondroitin A [Glucosamine Chondroit MSM Tab] 1 ea PO DAILY 11/22/17 [History Confirmed 04/23/19] Melatonin 10 mg PO QHS PRN 11/22/17 [History Confirmed 04/23/19] Methenamine Hippurate 1 gm PO BID 11/22/17 [History Confirmed 04/23/19] Zaleplon [Sonata] 10 mg PO QHS PRN PRN 11/22/17 [History Confirmed 04/23/19] Baclofen [Lioresal] 30 mg PO DINNER 04/12/19 [History Confirmed 04/23/19] Cranberry 400 mg PO DAILY 04/12/19 [History Confirmed 04/23/19] Gabapentin [Neurontin] 200 mg PO DINNER 04/12/19 [History Confirmed 04/23/19] Gabapentin [Neurontin] 400 mg PO BID 04/12/19 [History Confirmed 04/23/19] Hydrocodone Bitart/Apap 5-325 [[place] 5MG-325MG] 1 - 2 tab PO Q4H PRN PRN 5 Days #20 tab 04/12/19 [Rx Confirmed 04/23/19] Ocrelizumab [Ocrevus] 300 mg IV X1 04/12/19 [History Confirmed 04/23/19] [place]-3 Fatty Acids [[place]-3] 1,000 mg PO DAILY 04/12/19 [History Confirmed 04/23/19] Oxybutynin [Ditropan] 5 mg PO DAILY 04/12/19 [History Confirmed 04/23/19] Venlafaxine HCl [Effexor Xr] 37.5 mg PO QHS 04/12/19 [History Confirmed 04/23/19] [facility] Social History (Updated 04/23/19 @ 12:51 by LUISA Dixon) Smoking Status: Former smoker HPI right wrist: Details: Parts of this documentation were recorded by a scribe, this documentation accurately reflects the service provided and the decisions made by me, LUISA Dixon 04/23/19 0891. KRISTI MONTEIRO is a 63 year old F here today for 1 week F/u after being placed in a short arm cast. Patient denies any pain today. Denies numbness, tingling or other associated symptoms. Patients cast is intact. ROS Const Reports system reviewed and no additional complaints, except as docu Eyes Reports system reviewed and no additional complaints, except as docu ENT Reports system reviewed and no additional complaints, except as docu Card Reports system reviewed and no additional complaints, except as docu Resp Reports system reviewed and no additional complaints, except as docu GI Reports system reviewed and no additional complaints, except as docu Musc Reports system reviewed and no additional complaints, except as docu, Reports as per HPI, Reports joint swelling, Denies numbness, Reports stiffness, Denies tingling Skin/Breast Reports system reviewed and no additional complaints, except as docu Neuro Yes system reviewed and no additional complaints, except as docu, No numbness, No tingling Psych Reports system reviewed and no additional complaints, except as docu Endo Reports system reviewed and no additional complaints, except as docu Pako/Lymph Reports system reviewed and no additional complaints, except as docu Aller/Immun Reports system reviewed and no additional complaints, except as docu Ortho Exam Right Wrist/Hand Skin/Wound: No Ecchymosis WRIST: Patient presents with right arm immobilized in short arm cast. The cast is clean, dry, intact without any evident breakdown. There is no evident abrasions or skin changes on the proximal or distal ends of the cast. Patient has normal movement and sensation of the fingers. Normal capillary refills. Left Wrist/Hand Skin/Wound: No Ecchymosis no r/r/w no abd pain no audible bruits Assessment & Plan Problems 1. Other closed extra-articular fracture of distal end of right radius with routine healing, subsequent encounter S53.925G Plan Patient presents for recheck of right distal radius fracture following application of short arm cast 1 week ago. Radiographs were taken today which show there has been some interval change with some shortening of the radius as well as some more volar angulation. These radiographs were shown and discussed with patient at this time. These images were also discussed with and all agreed that surgical intervention at this point appears to be a better option for stabilization of the distal radius. Risks and benefits of the surgery were discussed with patient and consent was signed in office today. Patient be contacted by surgical department as well as anesthesia for preanesthesia testing. Did discuss postop care as well as rehabilitation for the wrist. Patient can notify our office if she has any new injuries, concerns or planes, or any other questions in the meantime. Tentatively will plan for surgery next Saturday pending insurance approval. This note was generated with [employer] software. It may contain incorrect words, spelling, and punctuation that were not noted in checking the note before signing. Orders Orders: Wrist min 3 Views Today S52.501A Coding Level of Care Code Attention So Diagnoses Other closed extra-articular fracture of distal end of right radius with routine healing, subsequent encounter S52.359A ??Encounter type: subsequent encounter ??Fracture type: closed ??Fracture morphology: other extra-articular ??Fracture healing: with routine healing Comment Global fee for tx of distal radius fracture already applied -failed treatment - plan surger
[2019-04-29 09:56] LABS: Thyroid Stim Hormone (TSH) 2.55 uIU/mL (0.358-3.74)
--- NOTE | 2019-04-29 09:57 | DCINST_ITS ---
Discharge Diet: No Restrictions - leave dressing on until seen in postop clinic in 2 weeks, keep dressing cdi, call with concerns, move fingers as much as tolerated Discharge Activity: May Not Drive May shower in (days): 1 Ice area for (Minutes): 20 - Every hour while awake. Weight Bearing Status: Weight bearing as tolerated Keep extremity elevated above heart level: Operative Extremity Call your doctor if your incision/area has: Continuous Slow Oozing, Sudden Increased Bleeding, Increased Pain/ Swelling, Increased Redness, Foul Smelling Discharge Call your doctor if you observe: Fever of 101 or Higher, Coldness, Increased Pain, Numbness or Tingling, Change in Color, Calf discomfort Allergies/Adverse Reactions: Allergies alendronate sodium [From Fosamax] Adverse Reaction (Verified 04/28/19 08:01) Hives lisinopril Adverse Reaction (Verified 04/28/19 08:01) Other COUGHING Medications to take at Discharge Amlodipine [Norvasc] 10 mg PO DAILY 05/24/14 Baclofen 20 mg PO BREAKFAST 05/24/14 Lamotrigine 200 mg PO DAILY 05/24/14 Losartan Potassium [Cozaar] 50 mg PO BID 05/24/14 Venlafaxine HCl [Effexor] 75 mg PO BREAKFAST 12/17/14 Ascorbic Acid [Vitamin C] 1,000 mg PO DAILY@0800 06/08/15 Calcium Carbonate/Vitamin D3 [Calcium 600-Vit D3 800 Caplet] 1 ea PO DAILY 06/08/15 Cholecalciferol (Vitamin D3) [Vitamin D3] 5,000 unit PO DAILY 06/08/15 Coconut Oil 1,000 mg PO DAILY 06/08/15 Cyanocobalamin (Vitamin B-12) [Vitamin B-12] 1,000 mcg PO DAILY 06/08/15 Potassium 99 mg PO DAILY 06/08/15 Pramipexole Di-HCl [Mirapex] 1 - 2 mg PO QHS PRN 06/08/15 Acetaminophen [Tylenol] 325 mg PO PRN PRN 01/29/17 Cetirizine HCl [Allergy Relief] 10 mg PO QHS 01/29/17 Clonidine HCl 1 tab PO 1100 01/29/17 Clonidine HCl [Catapres] 0.2 mg PO QHS 01/29/17 Esomeprazole Magnesium 20 mg PO BID 06/20/17 Iron Carbonyl [Feosol] 65 mg PO DAILYCM 01/29/17 Meloxicam [Mobic] 1 tab PO BID 01/29/17 D-Mannose 500 mg PO DAILY 11/22/17 Docusate Sodium [Colace] 100 mg PO BID 11/22/17 Glucosamine/MSM/Chondroitin A [Glucosamine Chondroit MSM Tab] 1 ea PO DAILY 11/22/17 Melatonin 10 mg PO QHS PRN 11/22/17 Methenamine Hippurate 1 gm PO BID 11/22/17 Zaleplon [Sonata] 10 mg PO QHS PRN PRN 11/22/17 Baclofen [Lioresal] 30 mg PO DINNER 04/12/19 Cranberry 400 mg PO DAILY 04/12/19 Gabapentin [Neurontin] 200 mg PO DINNER 04/12/19 Gabapentin [Neurontin] 400 mg PO BID 04/12/19 Ocrelizumab [Ocrevus] 300 mg IV X1 04/12/19 [place]-3 Fatty Acids [[place]-3] 1,000 mg PO DAILY 04/12/19 Oxybutynin [Ditropan] 5 mg PO DAILY 04/12/19 Venlafaxine HCl [Effexor Xr] 37.5 mg PO QHS 04/12/19 Amoxicillin/Potassium Clav [Amox-Clav 875-125 mg Tablet] 0.5 ea PO PRN PRN 04/28/19 Magnesium 250 mg PO DAILY 04/28/19 Nortriptyline HCl [Pamelor] 10 mg PO QHS 04/28/19 Oxycodone HCl/Acetaminophen [Percocet 5/325] 1 - 2 tablet PO Q6H PRN PRN 5 Days #28 tablet 04/29/19 The following prescriptions were given: Oxycodone HCl/Acetaminophen [Percocet 5/325] 1 - 2 tablet PO Q6H PRN PRN 5 Days #28 tablet PRN Reason: Pain Transmission Status: Sent to [facility] Primary Care Physician: Susanna Sanderson MD [Primary Care Provider] - Test Results: Test results from this visit will be discussed in further detail at your follow- up appointment, if applicable. Please Follow Up With: Clarissa eFrnando, - [phone]
--- NOTE | 2019-04-29 09:58 | PCM.OPRPT ---
Report of Operation Date of Procedure: 04/29/19 Pre-Operative Diagnosis: right displaced distal radius fracture Post-Operative Diagnosis: same Surgery/Procedure Performed:: orif right distal radius saloon keeper: Frank Allen Type of Anesthesia:: General Anesthesiologist: Blue Dominguez Estimated Blood Loss (mL): minimal Fluids Replaced: 700cc lr Description of Procedure: Preop note Patient is 63-year-old with chronic medical conditions see chart sustained a fall onto her right outstretched arm arm. Patient immediate deformity ER displaced distal radius fracture with intraarticular component, attempted to maintain her in a short arm cast however displaced further and discussion was with patient versus casting versus ORIF. At this point patient is elected to proceed with ORIF of her right distal radius. Risk benefits alternatives surgery discussed the patient. Risks including but not limited to blood loss, blood clot, infection, neurovascular, failure procedure, loss of life and loss of limb. Patient is aware would like proceed with right wrist ORIF. Next Operative note Patient seen and examined preop holding area. Right wrist was marked. Patient brought to the operating room placed supine on the operating table. Signed, anesthesia, antibiotics were medical health researcher. The right arm was prepped and draped in usual sterile fashion with a tourniquet around her upper arm. All bony problems well-padded SCDs placed on her contralateral lower externally. We then used fluoroscopy to ascertain the level of our and skin incision we marked out over the FCR. The right arm was then elevated same any triggers rates her pressure of 250 torr. We then used a 15 blade to cut through the skin dissected down tenotomies to level of the FCR the FCR was then moved ulnarly. We then dissected down to the pronator quadratus pronator quadratus was elevated sharply from its insertion radially on the radius. We will then found the fracture site we then debride out the fracture site with the callus that had already ensued. We cleaned out irrigated reduced and then placed our narrow DCP Synthes plate. We then fixated distally using a combination of 4 cortical screws and 2 locking screws we then were able to restore ~5 then securing it proximally with there are 2 oh cortical screws. We measured and drilled up accordingly with all of our screws. We looked in multiple images and fluoroscopy to ensure that we did not encourage the joint as we had good reduction of her fracture which we did have. We then irrigated the incision with copious muscle sterile saline placed the pronator quadratus over top of the plate closed the subcuticular skin with 3-0 Vicryl and the skin with running 4-0 Monocryl. Sterile dressings were applied and a splint was applied. Patient tired procedure well no comp occasions transferred recovery room in stable condition tourniquet was deflated for a total working time of 60 minutes. Postoperative note Next Nonweightbearing right upper externally Follow-up in 2 weeks for x-rays Keep incision clean and dressing clean and dry Hospital pharmacy has prescriptions This note was generated with [employer] dictation software. It may contain incorrect words, spelling, and punctuation that were not noted in checking the note before signing.
[2019-04-29] MEDS: Lactated Ringers 1,000 ML 100 ML IV ×2 (10:03→13:31)
[2019-04-29] MEDS: Cefazolin 2 GM in 0.9% Normal Saline 100 ML IV (10:30)
--- NOTE | 2019-04-29 10:48 | RAD_ITS ---
STUDY: X-RAY - RIGHT WRIST REASON FOR EXAM: Fracture repair in OR. TECHNIQUE: 3 intraoperative fluoroscopic images of the wrist were obtained. COMPARISON: Radiographs 04/23/2019. FINDINGS: There is an orthopedic plate and screws transfixing a distal radial fracture in anatomic alignment and position. Electronically Signed: Cody Sandra MD at 13:20 EDT Tel , Service support , RAD/Wrist min 3 Views
[2019-04-29] MEDS: Mupirocin Ointment 22gm Tube 1 APPLIC (11:58)
[2019-04-29] MEDS: HYDROcodone Bitartrate/Apap 5/325 Tablet PO (15:29)
== END 2019-04-29 16:29 | disposition home or self-care (01) ==
LOC: SDC 08:56 → AC 08:57
PROVIDERS: Anesthesiology; Family Provider Internal Medicine; PCP Internal Medicine; Referring Provider Orthopaedic Surgery; Visit Provider Orthopaedic Surgery
PROC: (CPT 25607; principal; 2019-04-29 10:20)
DX: S52.551A Other extraarticular fracture of lower end of right radius, initial encounter for closed fracture (principal); G25.81 Restless legs syndrome; G35 Multiple sclerosis; K21.9 Gastro-esophageal reflux disease without esophagitis; D64.9 Anemia, unspecified; F32.9 Major depressive disorder, single episode, unspecified; I10 Essential (primary) hypertension; G47.30 Sleep apnea, unspecified; Z79.899 Other long term (current) drug therapy; Z87.891 Personal history of nicotine dependence; Z85.810 Personal history of malignant neoplasm of tongue; W18.30XA Fall on same level, unspecified, initial encounter; Y93.89 Activity, other specified; Y92.89 Other specified places as the place of occurrence of the external cause; Y99.8 Other external cause status
CPT/HCPCS: 01830; 25607; 36415; 73110; 76000; 84443; 93005; C1713; J7120; J2405

== ENCOUNTER 2019-05-07 16:37 | Emergency (ER) | payer MEDICAID, SELFPAY ==
[2019-04-29 09:35] VITALS: BMI 23.8
[2019-05-07 16:38] VITALS: BP 147/92; PULSE 67; RESP 18; TEMP 36.6; O2SAT 99; BMI 24.2
--- NOTE | 2019-05-07 16:42 | RAD_ITS ---
STUDY: X-RAY - RIGHT WRIST REASON FOR EXAM: Female, 63 years old. Fall TECHNIQUE: 3 view(s) of the wrist were obtained. COMPARISON: None. FINDINGS: Evaluation is limited due to overlying cast and osteopenia. Internal fixation of the distal radius is present. There is no evidence of new displaced fracture or dislocation. There is increased scapholunate distance, which appears chronic. There are no radiodense foreign bodies. RAD/Wrist min 3 Views IMPRESSION: Limited evaluation without evidence of new displaced fracture or dislocation. If further clinical concern, consider CT evaluation or short-term follow-up. Stable appearing scapholunate dissociation, limited in assessment due to osteopenia and casting material. Electronically Signed: Catalino Hill, at 17:00 EDT Tel , Service support ,
--- NOTE | 2019-05-07 17:25 | ED.DCSUM_ITS ---
History of Present Illness Chief Complaint: Fall Detail of Chief Complaint: Forehead trauma and laceration and right wrist pain Informant: Patient Onset: Today, Hours Mechanism/Context: Fall, Trip - Crack in the pavement of the establishments park ing lot Quality of Pain: Aching Current Severity: Mild Maximum Severity: Moderate Worsened by: Nothing Relieved by: Nothing Associated Symptoms: - - Patient had an open reduction internal fixation of the distal right wrist by orthopedics last week.. Negative for: Parasthesias, Weakness, Loss of function, Inability to ambulate, Loss of consciousness, Amnesia Length of loss of consciousness: Negative Narrative: Patient is a 63-year-old itety-egzf-rsfnbsln woman who presents because of mechanical fall, tripped crack parking lot. Struck her head. There is no loss conscious. Is not amnestic. She was not dazed. Denies headache. She is on no anticoagulant. She denies neck pain. Denies paresthesia, anesthesia buttocks present time of the fall. Does report right wrist pain. She does report laceration by her left brow. She does not recall last tetanus shot. She denies cardiac respiratory symptoms. She denies any other symptoms. Prior similar symptoms: No Recent Illness/Hospitalization: Yes - ORIF right wrist - Past Medical History (1) Depression Status: Chronic (2) History of tongue cancer Status: Chronic (3) Hypertension Status: Chronic (4) Multiple sclerosis Status: Chronic (5) Muscle spasm Status: Chronic (6) Osteoarthritis Status: Chronic (7) Urinary retention Status: Chronic Past Medical History - Allergies and Home Meds Allergies/Adverse Reactions: Allergies alendronate sodium [From Fosamax] Adverse Reaction (Verified 05/07/19 16:38) Hives lisinopril Adverse Reaction (Verified 05/07/19 16:38) Other COUGHING Primary Care Physician: Susanna Sanderson MD [Primary Care Provider] - Prior records reviewed: Yes Surgical History: total hip arthroplasty, - - Carpal tunnel surgery. foot, tongue surgery Lives: Alone Smoking Status: Former smoker Alcohol: None Drugs: None - Family History Maternal Family History: Reports: - Paternal Family History: Reports: No pertinent history Review of Systems General: Denies: Chills, Fever, Sweats Eyes: Denies: Visual changes - bilaterally, Blurred Vision - bilaterally, Diplopia ENT: Reports: - - Denies change in vision or double vision.. Denies: Bilateral ear pain, Rhinorrhea, Sore throat Cardiovascular: Denies: Chest pain, Palpitations Respiratory: Denies: Dyspnea, Dyspnea on exertion Gastrointestinal: Denies: Abdominal pain, Nausea, Vomiting, Diarrhea Musculoskeletal: Reports: Extremity Pain. Denies: Myalgias, Arthralgias, Neck pain, Back pain, Swelling, -, - Skin: Reports: Wounds. Denies: Rash Neurological: Denies: Headache, Weakness, Parasthesia, Numbness, -, - Endocrine: Denies: Polyuria, Polydipsia Allergy: Denies: Uticaria, Swelling of the mouth, Swelling of the tongue Physical Exam Vital Signs/Narrative: Vital Signs Temp Pulse Resp BP Pulse Ox 05/07/19 16:38 97.8 F 67 18 147/92 H 99 Inital Vital Signs reviewed: Yes General: Well nourished, Well developed Head: Normocephalic, Trauma, Tenderness - Superior lateral left brow. There is ecchymosis noted. There is a 2.5 cm laceration. Eyes: Perrl, EOMI, - - Is no subconjunctival hemorrhage. There is no step-off with palpation of the infraorbital rim and there is no hyperesthesia in focal nerve. There is no evidence of entrapment.. Negative for: Pale conjunctiva, Scleral icterus ENT: TM's clear, No hemotympanum or drainage, No trauma. Negative for: Hemotympanum, Otorrhea, Nasal trauma, Nasal septal hematoma Neck: Nontender, Full ROM. Negative for: Spinal Tenderness, Paraspinal Tenderness Cardiovascular: Regular rate, Regular rhythm, No murmurs, Normal S1, Normal S2 Respiratory: No distress, CTA bilaterally, Chest nontender Abdomen: Soft, Nontender, Nondistended, Normal bowel sounds, - - No pain the patient the pelvis. Rectal: Deferred Back: Nontender. Negative for: Spinal Tenderness, Paraspinal Tenderness Extremeties: Full active range of motion upper lower extremity at the shoulder, elbow, wrist except right since the wrist is in a splint, hip, knee and ankle. There are no neurovascular findings of the upper or lower extremity. Skin: Normal color, No rash, Trauma - 0.5 cm laceration superior lateral aspect left brow with contusion and abrasion over the left patella Neurological: Alert, Oriented x3, Cranial nerves II-XII grossly intact, Normal Strength, Normal Sensation, Normal DTR. Negative for: Normal Gait Psychological: Normal affect - Glascow Coma Scale Eye Opening: Spontaneous Motor: Obeys Commands Verbal: Oriented Coma Scale Total: 15 Diagnostic/Tx/Re-eval Chest X-Ray - ED: Read by ED Physician, - - Review x-ray interpretation and medical decision making - Medical Decision Making The wrist was obtained per nurse protocol. X-ray of the wrist reveals evidence of prior fracture fifth metacarpal with 2 screws in proper position. There is a plate with multiple screws distal right radius. There is no obvious fracture noted proximal to the plate. Carpal bones are well aligned. There is no fracture to the phalanges or metacarpal bones. He has a laceration which will require repair. The laceration is amenable to gluing with Dermabond. Tetanus was updated. Laceration No standard instances Length: 0.98 in Depth: Sub Q Shape: Linear Prep: Shure-Clens Stitch Description: - - Skin was closed using Dermabond ED Disposition - Plan for ED Patient: Disposition: Home or Assisted Living Diagnosis: Facial laceration, Contusion of right wrist, initial encounter, Abrasion, left knee, initial encounter Instructions: LACERATION, Face (Skin Glue) Referrals: Susanna Sanderson MD [Primary Care Provider] - As Needed
[2019-05-07] MEDS: Diphth,Pertuss(Acell),Tet Vac 0.5 ML Vial IM (17:45)
== END 2019-05-07 18:14 | disposition home or self-care (01) ==
PROVIDERS: Emergency Provider Emergency Medicine; Family Provider Internal Medicine; PCP Internal Medicine
DX: S01.112A Laceration without foreign body of left eyelid and periocular area, initial encounter (principal); S80.212A Abrasion, left knee, initial encounter; S60.211A Contusion of right wrist, initial encounter; I10 Essential (primary) hypertension; G35 Multiple sclerosis; M19.90 Unspecified osteoarthritis, unspecified site; Z87.891 Personal history of nicotine dependence; Z85.810 Personal history of malignant neoplasm of tongue; Z23 Encounter for immunization; W01.0XXA Fall on same level from slipping, tripping and stumbling without subsequent striking against object, initial encounter; Y93.01 Activity, walking, marching and hiking; Y92.481 Parking lot as the place of occurrence of the external cause; Y99.8 Other external cause status
CPT/HCPCS: 12011; 73110; 90715; 99282

== ENCOUNTER → 2019-05-14 | Outpatient (CLI) | payer MEDICAID, SELFPAY ==
[2019-05-14 13:46] VITALS: BMI 24.2
== END | disposition home or self-care (01) ==
LOC: HPRAD 14:01
PROVIDERS: Family Provider Internal Medicine; PCP Internal Medicine; Referring Provider Orthopaedic Surgery; Visit Provider Orthopaedic Surgery
DX: S52.501A Unspecified fracture of the lower end of right radius, initial encounter for closed fracture (principal)
CPT/HCPCS: 73110

== ENCOUNTER → 2019-05-20 | Outpatient (CLI) | payer MEDICAID, SELFPAY ==
[2019-05-07 16:38] VITALS: BMI 24.2
[2019-05-14 13:46] VITALS: BMI 24.2
--- NOTE | 2019-05-20 12:38 | MRI_ITS ---
STUDY: MRI BRAIN WITH AND WITHOUT CONTRAST REASON FOR EXAM: Female, 63 years old. Follow-up multiple sclerosis TECHNIQUE: Standardized multiplanar fat and water weighted pulse sequences were obtained. IV Dotarem 15 was administered for the contrast portion of the examination. COMPARISON: Previous MRI of the head obtained on 01/30/2017 FINDINGS: The diffusion weighted axial images and ADC map images of the head show no evidence of restricted diffusion. The casey, medulla and midbrain and cerebellum appear to be normal. The ventricles and sulci are mildly enlarged.The cerebral hemispheres show about 3 foci on the left and 2 foci on the right of markedly increased signal on the FLAIR images are arranged in a vertical distribution along the posterior aspect of the rodriguez radiata bilaterally and respectively. This was seen previously on the prior MRI of the head obtained on 01/30/2017 and is unchanged. There are 2 vertically oriented smaller lesions seen in the anterior left rodriguez radiata which have decreased in size when compared with the previous study and a small area of increased signal seen in the mid right rodriguez radiata which is likewise decreased in size. No disease areas demonstrate enhancement. These lesions all represent areas of demyelinization from multiple sclerosis with a mild MS plaque burden which is slightly improved.The basal ganglia appear to be normal. No evidence of a Chiari I malformation is identified. The V4 segments of the vertebral artery, the basilar artery, the posterior cerebral arteries, the cavernous and supraclinoid carotid arteries, and the M1 segments of the middle cerebral arteries are all normal The orbits including the optic nerves and optic chiasm appear normal. The pituitary and pituitary infundibulum appear to be normal. The inner and outer tables of the skull are normal The frontal, ethmoid, maxillary, and sphenoid sinuses are normal. The mastoid air cells are normal. MRI/Brain W/WO Contrast IMPRESSION: 1 mild cerebral atrophy 2. Mild MS plaque burden which has slightly decreased. No active enhancing MS plaques are seen. Electronically Signed: Ernesto Leobardo, at 15:42 EDT Tel , Service support ,
== END | disposition home or self-care (01) ==
PROVIDERS: Family Provider Internal Medicine; PCP Internal Medicine; Referring Provider Psychiatry & Neurology Neurology; Visit Provider Psychiatry & Neurology Neurology
DX: G35 Multiple sclerosis (principal); R29.6 Repeated falls
CPT/HCPCS: 70553; A9575

== ENCOUNTER 2019-06-15 14:15 | Emergency (ER) | payer MEDICAID, SELFPAY ==
[2019-05-14 13:46] VITALS: BMI 24.2
[2019-06-15 14:16] VITALS: BP 163/87; PULSE 84; RESP 19; TEMP 36.9; O2SAT 95; BMI 25.0
--- NOTE | 2019-06-15 15:03 | ED.DCSUM_ITS ---
- ER Visit Summary Date of Service: 06/15/19 Chief Complaint: Fall History of Present Illness: The patient is a 63 F who presents with a fall that occurred yesterday. Patient states she tripped going down 2 steps and fell forward. Patient states she hit her face and nose. Patient denies any loss of consciousness. Patient denies any paresthesias or weakness. Patient describes her pain as dull. Patient states nothing makes it better or worse. Patient went to an urgent care today and then was referred here for possible x-rays. Patient denies any visual changes. Patient denies any nausea or vomiting. Patient does have a history of MS. Physical Examination: Vital signs are stable. Patient is afebrile. Patient is in no acute distress. Pupils are equal, round, and reactive to light bilaterally. Extraocular muscles are intact. Nasal mucosa is pink and moist. There is no septal hematoma noted. There is mild tenderness over the bridge of the nose. There is no bony crepitance or step-off. There is no epistaxis noted. There are superficial abrasions on the nose and upper lip. There is no active bleeding noted. Oral mucosa is pink and moist. Oropharynx is clear. Neck is supple. Trachea is midline. There is no JVD. Heart was regular rate and rhythm. Lungs are clear and equal bilaterally. Cranial nerves II through XII are grossly intact. There are no focal motor or sensory deficits noted. Emergency Department Course and Treatment: I do not feel x-rays are necessary at this time. I discussed the value of the x-rays with the patient. Patient states she has seen Dr. Marino from ENT in the past. Patient was instructed to follow-up with Dr. Marino in 5 to 7 days. Patient and family understood and were agreeable with the plan. All questions were answered. Disposition: Discharge home Impression: 1. Facial contusion 2. Nasal abrasions This note was generated with [employer] dictation software. It may contain incorrect words, spelling, and punctuation that were not noted in review of the chart prior to signing ED Disposition - Plan for ED Patient: Disposition: Home or Assisted Living Diagnosis: Facial contusion, Abrasion of nose Instructions: FALL, Mechanical, Fall Prevention Referrals: Susanna Sanderson MD [Primary Care Provider] - 1-2 Weeks Jesus Marino MD [STAFF PHYSICIAN] - 5-7 Days
[2019-06-15 15:15] VITALS: PULSE 87; RESP 17; O2SAT 96
== END 2019-06-15 15:16 | disposition home or self-care (01) ==
PROVIDERS: Emergency Provider Emergency Medicine; Family Provider Internal Medicine; PCP Internal Medicine
DX: S00.31XA Abrasion of nose, initial encounter (principal); S00.83XA Contusion of other part of head, initial encounter; I10 Essential (primary) hypertension; G35 Multiple sclerosis; W01.0XXA Fall on same level from slipping, tripping and stumbling without subsequent striking against object, initial encounter; Y93.01 Activity, walking, marching and hiking; Y92.89 Other specified places as the place of occurrence of the external cause; Y99.8 Other external cause status
CPT/HCPCS: 99282

== ENCOUNTER → 2019-06-22 | Outpatient (CLI) | payer MEDICAID, SELFPAY ==
[2019-06-22 13:13] VITALS: BMI 25.0
--- NOTE | 2019-06-22 13:22 | RAD_ITS ---
STUDY: X-RAY - LEFT WRIST REASON FOR EXAM: Female, 63 years old. Trauma TECHNIQUE: 4 view(s) of the wrist were obtained. COMPARISON: None. FINDINGS: Normal distal ulna. There appears to be minimal impaction of the distal radius on the lateral projection with minor overlapping of fracture fragments.. Normal radiocarpal articulation. Normal distal radioulnar articulation. Normal carpal bones. Normal carpal articulations. Arthrosis of the carpometacarpal articulation of the thumb. Normal second through fifth carpometacarpal articulations. Normal visualized metacarpal bones. The soft tissue structures are unremarkable. RAD/Wrist min 3 Views IMPRESSION: Minimally impacted distal radial fracture Electronically Signed: Catalino Corbett MD at 22:36 EST , Service support ,
== END | disposition home or self-care (01) ==
LOC: HPRAD 13:22
PROVIDERS: Family Provider Internal Medicine; PCP Internal Medicine; Referring Provider Physician Assistant; Visit Provider Physician Assistant
DX: M25.532 Pain in left wrist (principal)
CPT/HCPCS: 73110

== ENCOUNTER → 2019-06-30 13:42 | Outpatient (CLI) | payer MEDICAID, SELFPAY ==
[2019-06-30 13:38] VITALS: BMI 25.0
--- NOTE | 2019-06-30 13:43 | RAD_ITS ---
STUDY: X-RAY - LEFT WRIST REASON FOR EXAM: Fracture follow-up. TECHNIQUE: 3 view(s) of the wrist were obtained. COMPARISON: Radiographs 06/22/2019. FINDINGS: There is a nondisplaced fracture of the distal radial metaphysis. Normal radiocarpal articulation. Normal distal radioulnar articulation. There is mild deformity of the mid scaphoid as on the prior study, from suspected remote healed fracture. Normal carpal articulations. There is severe joint space narrowing of the carpometacarpal articulation of the thumb. Normal second through fifth carpometacarpal articulations. Normal visualized metacarpal bones. There is an overlying cast. RAD/Wrist min 3 Views IMPRESSION: Nondisplaced fracture of the distal radius with no significant change. Electronically Signed: Cody Sandra MD at 12:44 EST Tel , Service support ,
== END ==
PROVIDERS: Family Provider Internal Medicine; PCP Internal Medicine; Referring Provider Orthopaedic Surgery; Visit Provider Orthopaedic Surgery
DX: S52.502A Unspecified fracture of the lower end of left radius, initial encounter for closed fracture (principal)
CPT/HCPCS: 73110

== ENCOUNTER → 2019-07-06 13:27 | Outpatient (CLI) | payer MEDICAID, SELFPAY ==
[2019-07-06 13:20] VITALS: BMI 25.0
--- NOTE | 2019-07-06 13:29 | RAD_ITS ---
STUDY: X-RAY - LEFT WRIST REASON FOR EXAM: Female, 63 years old. Fracture. TECHNIQUE: 3 view(s) of the wrist were obtained. COMPARISON: 06/30/2019. FINDINGS: Exam is limited due to superimposition of bandage material. There is healing fracture of the distal radius, stable alignment in the interval.. There is mild degenerative arthrosis of the radiocarpal articulation. Normal distal radioulnar articulation. Normal carpal bones. There is degenerative arthrosis of the scaphotrapezium trapezoid joint. There is degenerative arthrosis of the carpometacarpal articulation of the thumb. Normal second through fifth carpometacarpal articulations. Normal visualized metacarpal bones. The soft tissue structures are unremarkable. RAD/Wrist min 3 Views IMPRESSION: Healing fracture of the distal radius, stable alignment in the interval. Underlying degenerative disease. Electronically Signed: Yajaira Malagon MD at 2:39 EST , Service support ,
== END ==
PROVIDERS: Family Provider Internal Medicine; PCP Internal Medicine; Referring Provider Physician Assistant; Visit Provider Physician Assistant
DX: S52.502D Unspecified fracture of the lower end of left radius, subsequent encounter for closed fracture with routine healing (principal)
CPT/HCPCS: 73110; 97110

== ENCOUNTER 2019-07-08 12:30 | Outpatient (RCR) | payer MEDICAID, SELFPAY ==
[2019-05-14 13:46] VITALS: BMI 24.2
--- NOTE | 2019-05-18 12:42 | HP.PTEVAL_ITS ---
Patient's Visit Information KRISTI MONTEIRO is a 63 year old F referred to Physical Therapy by Qamar Raines MD with a diagnosis of MS. Date of Evaluation: 05/18/19 Physical Therapist: Blue Quintero, BARBT, OCS, CSCS - Visit Plan Frequency: 2x /Week Duration: 4-6 Weeks Plan: 2x/week for 4-6 weeks for... 1. balance for vestibular and weight shifting adn VOR. 2. gait with similar challenges. 3. core /postural and LE strength progressing to I with HEP with pics including bridge, plank, clamshell and HS/HC stretches adn sink exercises. When I with these, poease progress to gym ex. - Subjective Findings: Has MS adn has for 30 years adn had therapy on and off. Has had a lot of falls lately and needs to wrok on balance. Legs are weak and balance feels off. Foot was sticking on wax floors. Broke arm and will have hand therapy tomorrow. Last fall was last week around the house tripping on toe. Hard time catching self due to weakness. Sleep is not great but that is normal for her. Got a new bed which has helped. Gets 5 hours. 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 On disability from MS. Uses cane to get around at home, Lives with boyfriend in one story house with basement that she does not use but has railing. Goes swimming in summer but did not this summer. Will get trekking poles but has been afraid to walk outside due to falls. Basic ADLs are getting done I. Shower and bath is fine. - Objective Walks with cane in L UE, R wrist wrapped since fall, and neuropathic, short step length, hesitant gait pattern with cane Mod I. Without cane this is more pronounced but can still ambulate slow adn safe on frim flat surface. Trasnfers I with UE. Steps reciprocal with rail, weakness obvious in B LE and core. Sitting posture is unstable with clincal testing today but safe adn I. LE aROM WFL, tighness present gastroc and HS B. reflexes 1/3 patella and achilles. Sensation is diminished to grosslight touch in feet. Strength 3+ ankles, 4- knees adn 4- hip flexionk 3+ hip ext adn abd, 3+/5 core abd and parapsinals. - Balance Scores Functional Gait Assessment Score: 19 % Disability: 36.6700 CATSIB Score (Max score 120 seconds): 100 - Goals Goal 1:: FGa to diminish fall risk Goal Time Frame: 4-6 Weeks Goal 2:: I approp HEP for strength adn balacne to minimize future risk. Goal Time Frame: 4-6 Weeks Goal 3:: Pt feel 50% improved in activity and safety Goal Time Frame: 4-6 Weeks Goal 4:: LEFS<33% disability. Goal Time Frame: 4-6 Weeks - Rehabilitation Potential Physical Therapy Diagnosis: MS related gait and balacne challenges. Rehabilitation Potential: Fair - Anticipated Interventions Patient/Client Instruction: Educate patient on: Condition, Plan of Care For the Purpose of:: To increase tolerance to activity/condition/position, To improve ability of physical actions for home/community/work/leisure, To improve gait and locomotor functions, To improve safety with gait Therapeutic Exercise to Include: Strength training, Balance training, Postural training, Gait and locomotor training, Active ROM For the Purpose of:: To increase tolerance to activity/condition/position, To improve ability of physical actions for home/community/work/leisure, To improve balance Thank you for the opportunity to evaluate your patient. For Medicare and Medicare HMO plans, please review the plan of care and approve it. It will need to be FAXED BACK to us at [phone] for Medicare purposes. For Medicare only, by signing this I certify the plan of care. Please let me know if there are questions or concerns regarding this plan of care. Physician Signature: Date:
--- NOTE | 2019-05-19 10:56 | HP.OTEVAL_ITS ---
Patient's Visit Information MARCY MONTEIRO is a 63 year old F, referred to Occupational Therapy by Qamar Raines MD, with a diagnosis of S/P R wrist ORIF. Date of Evaluation: 05/19/19 Occupational Therapist: Malorie Chi, OTR/L - Subjective Subjective: Marcy is 63 y/o woman who arrived to session s/p R wrist ORIF. She fractured R wrist around end of April. She noted that she has PMHx significant for MS and has received therapy on/ off for the last few years. She brought neighbor, Lakshmi, with her to appointment. No brace on R wrist but she noted ' she has been wearing' at night and is to wear for next two weeks as per doctor. - ADLs Dressing: Bra, Pants, Socks, Shoes Fasteners: Snaps, [place] Eating: Use silverware, Cut food Bathing: Handle washcloth & soap, Squeeze shampoo bottle Toileting: Manage clothing Grooming: stud beef cattle farmer, Put on makeup, Trim nails Comments: strightner and trimming toenails is difficult Kitchen: Chop with knife, Peel fruits & vegetables, Open jars, Open bottle caps, Lift gallon of milk, Pour from pitcher, Lift saucepan, Take dish out of oven, L oad/unload garment turner Household: Sweep/mop, Dust, Laundry Miscellaneous: Use cell phone, Take things out of wallet, Open envelope, Carry shopping bag, Write, Use power tools, Open doors/Including car door, Operate spray bottle - Pain Right Wrist 2 Pain Intensity Range: 1, 4 - ROM Wrist: flexion R 0-25, L WFL; ext R 0-26, l WFL; radial dev R 0-8, L WFL; CMC: WFL MP: WFL IP: WFL Radial Abduction: WFL Palmar Abduction: WFL MP: WFL PIP: WFL DIP: WFL ROM Comments: Ulnar Deviation R 0-15, L WFL - Strength Batching Operator: R 30, L 55 Lateral Pinch: R 7, L 14 Tripod Pinch: R 6, L 15 Tip-to-Tip Pinch: R 5, L 9 - Sensation Sensation Comments: Denies numbness or tingling in hands. - Nine Hole Peg Right: 30.42 s Left: 36.02 s - In-Hand Manipulation Finger to Palm Translation: Mild - Right, Normal - Left Palm to Finger Translation: Mild - Right, Normal - Left Shift: Mild - Right, Normal - Left Rotation: Mild - Right, Normal - Left - Quick DASH-Disab of Arm,Shoulder& Hand Quick DASH Score: 34.0900 - Goals Goal:: Marcy to increased R microbiology lab analyst strength by 15 lbs to promote increased strength and stability of R UE needed for ADls/IADLs by d/c. Goal:: Marcy to gain 10-15 degrees of R wrist ROM to promote increased ability to complete ADl/IADls by d/c. Goal:: Marcy to have no more than 0-1/10 pain 4/5 trials with every day tasks 4/5 trials 80% of the time by d/c. Goal:: Marcy to be mod I to complete daily scar masage to promote increased tissue mobility and decreased risk of scar tissue over volar incision by d/c. Goal:: Marcy to be mod I to complete jt protection and energy conservation technqiues for R wrist for ADL/IAdls to promote alignment and decrease risk of reinjury 4/5 trials 80% of the time by d/c. Goal:: Marcy to be (i) to complete all FMC and dexterity related ADLS taking some force of impact through R wrist e.g. cutting food with a knife, hooking bra 4/5 trials 80% of the time to promote returning to PLOF by d/c. Goal:: Marcy to be mod I to complete daily HEP to promote strength, stability, ROM,a nd endurance of R wrist 4/5 trials 80% of the time for ADL/IADLs by d/c. - Rehabilitation General Assessment: Marcy is 63 y/o woman who is s/p ORIF of R wrist. She has significant PMHx of MS which has affected her balance. That is how she fracture right wrist due to fall on outstretched arm. Marcy exhibits increased strength, ROM, and deficits to be able to use R wrist for ADl/IADls. She will be complete skilled OT to return to PLOF for all ADl/IADls. Rehabilitation Potential: Good - Anticipated Interventions Anticipated Interventions: A/AAROM/PROM, Strengthening, Edema Control, Scar Care, Wound Care, Modalities, Orthoses, Joint Protection/Energy Conservation, Ergonomic Education, Dynamic Sitting Balance, Fine Motor Coord/Dash, Neuro Re education, ADL Training, Caregiver Training, Home Program - Visit Plan Frequency: 2x /Week Duration: 4 Weeks General Plan: Marcy to complete skilled Ot to promote returning to PLOF through ROM, strength with PRE, scar management, edema management as needed to return and completed all ADL/IADls by d/c. TEXT: Thank you for the opportunity to evaluate your patient. For Medicare and Medicare HMO plans, please review the plan of care and approve it. It will need to be FAXED BACK to us at [phone] for Medicare purposes. Please let me know if there are questions or concerns regarding this plan of care. Physician Signature: Date:
--- NOTE | 2019-06-08 12:36 | HP.PTDCSUM_ITS ---
HP - PT D/C Summary It has been my pleasure to treat KRISTI MONTEIRO under orders from Qamar Raines MD, for the diagnosis of MS for a total of 7 visit(s). Discharge Date: 06/08/19 Please see the following information for a summary of their discharge status. - Subjective Subjective: Will have hysterectomy adn is anxious. Just had OT. Is active but not alot wiwht exercises. Exerrcises in PT are helpful. Noticing more strength and endurance. Feels like she is better with strength adn bal ance. Hasn't done a lot of exercises. Has some back pain intermittently. - Overall Improvement % Improvement: 40 - Objective Objective/Function: +3 FGA, tranfers out of chair without UE easily. Steps reciprocal with one rail. Walk sfe on firm flat surface but recommended cane for safety in home/community situations. - Goals Goal 1:: FGa to diminish fall risk Goal Progress: Progressing Goal 2:: I approp HEP for strength celena vanne to minimize future risk. Goal Progress: noncompliant Goal 3:: Pt feel 50% improved in activity and safety Goal Progress: Progressing Goal 4:: LEFS<33% disability. Goal Progress: Not Progressing - Plan Plan: d/c. Pt to ask to return when appropriate afeter her surgery. - D/C Information Discharge Comments: Pt to have surgery and will ask to return if needed after surgery with new script. If there are questions or concerns regarding this patient's physical therapy, please feel free to call me at [phone]. Thank you for the referral of this patient. Sincerely, Blue Quintero, DPT, OCS, CSCS
--- NOTE | 2019-06-10 10:22 | HP.OTREVAL ---
Qamar Raines MD, It has been my pleasure to treat MARCY MONTEIRO over the last 7 visits for S/P R wrist ORIF. Please see the progress note below for an update on the occupational therapy plan of care! Subjective: Arrived and apologetic for missing yesterday as got times confused. Noted tomorrow is surgery and she will be placed on medical hold until she is able to follow up in two weeks. Objective/Function: Reassessment completed 06/08/19 and results as follows: ROM: Wrist. - flexion: R 0-37, L WFL. - extentsion: R 0-42, L WFL. Strength: licensed investment sales assistant R 32, L 54. lateral R 4, L 6. tripod R 3, L 7. pincer R 2, L 4. 9 hole pegboard: R 24.80 s. L 27. 33 s Plan Frequency: 1-2x /Week Duration: 3 Weeks Visits in this POC: -14 Plan: continue POC after she is s/p medical hold due to surgery. She has HEP she is to complete while recovering from surgery. When she is able to drive she is to come back to see OT. Chart to be kept open for next 2-3 months. Goals - Goals Goal:: Marcy to increased R licensed investment sales assistant strength by 15 lbs to promote increased strength and stability of R UE needed for ADls/IADLs by d/c. Goal:: Marcy to gain 10-15 degrees of R wrist ROM to promote increased ability to complete ADl/IADls by d/c. Goal:: Marcy to have no more than 0-1/10 pain 4/5 trials with every day tasks 4/5 trials 80% of the time by d/c. Goal:: Marcy to be mod I to complete daily scar masage to promote increased tissue mobility and decreased risk of scar tissue over volar incision by d/c. Goal:: Marcy to be mod I to complete jt protection and energy conservation technqiues for R wrist for ADL/IAdls to promote alignment and decrease risk of reinjury 4/5 trials 80% of the time by d/c. Goal:: Marcy to be (i) to complete all FMC and dexterity related ADLS taking some force of impact through R wrist e.g. cutting food with a knife, hooking bra 4/5 trials 80% of the time to promote returning to PLOF by d/c. Goal:: Marcy to be mod I to complete daily HEP to promote strength, stability, ROM,a nd endurance of R wrist 4/5 trials 80% of the time for ADL/IADLs by d/c. Anticipated Interventions Anticipated Interventions: A/AAROM/PROM, Strengthening, Edema Control, Scar Care, Wound Care, Modalities, Orthoses, Joint Protection/Energy Conservation, Ergonomic Education, Dynamic Sitting Balance, Fine Motor Coord/Dash, Neuro Reeducation, ADL Training, Caregiver Training, Home Program Please do not hesitate to contact me at [phone] by phone or if you have questions or concerns regarding this new plan of care! Sincerely, Malorie Chi, OTR/L
--- NOTE | 2019-06-29 15:32 | HP.OTCOM_ITS ---
OT Communication Note 06/29/[address] Qamar Raines MD Completed measurements as back from medical hold from surgery and are as follows: Strength: - pneumatic jacketer R 37, L 34 - lateral R 5, L held due to fx of L wrist. - tripod R 8, L held due to fx of L wrist. - pincer R 2, L held due to fx of L wrist. Will continue POC established for R hand. SHe has progressed in pneumatic jacketer strength at this time from 06/10/19. She is casted as has fallen and broke L wrist. Therapy to likely be completed on L when appropriate. Sincerely, Malorie Chi, OTR/L Contact Information
--- NOTE | 2019-07-30 10:00 | HP.OT.NRP ---
HP - Discharge Summary - Patient Information KRISTI MONTEIRO was seen in my office for initial evaluation on 05/19/19. The following Plan of Care was established for this patient: Initial Frequency: 1-2x /Week Initial Duration: 3 Weeks Plan: continue POC. Looked up next bharti and she wrote it down. Will continue pRE> She is to see if she has to have surgery via x-ray follow up. - Anticipated Interventions Anticipated Interventions: A/AAROM/PROM, Strengthening, Edema Control, Scar Care, Wound Care, Modalities, Orthoses, Joint Protection/Energy Conservation, Ergonomic Education, Dynamic Sitting Balance, Fine Motor Coord/Dash, Neuro Reeducation, ADL Training, Caregiver Training, Home Program This patient was last seen in our office 07/06/19. Pertinent comments regarding their Occupational therapy will appear below: Due to breaking L wrist , R wrist therapy was put on hold. She has follow up for L wrist today. 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 - tripod R 8, L held due to fx of L wrist. - pincer R 2, L held due to fx of L wrist. R wrist will be d/c'd at this time and further OT follow up to be completed on L wrist if needed. At this point I will be discontinuing this patient from occupational therapy. I would be happy to see this patient again in the future if found appropriate by the physician. Thank you! Malorie Chi, OTR/L
== END 2019-07-08 19:00 | disposition home or self-care (01) ==
LOC: OT 12:30
PROVIDERS: Family Provider Internal Medicine; PCP Internal Medicine; Referring Provider Psychiatry & Neurology Neurology; Visit Provider Psychiatry & Neurology Neurology
DX: G35 Multiple sclerosis (principal); Z98.890 Other specified postprocedural states
CPT/HCPCS: 97110; 97140; 97162; 97166; 97530

== ENCOUNTER → 2019-07-16 14:18 | Outpatient (CLI) | payer MEDICAID, SELFPAY ==
[2019-07-06 13:20] VITALS: BMI 25.0
--- NOTE | 2019-07-16 14:19 | RAD_ITS ---
STUDY: X-RAY - LEFT WRIST REASON FOR EXAM: Female, 63 years old. Pain TECHNIQUE: 3 view(s) of the wrist were obtained. COMPARISON: July 06, 2019 FINDINGS: Healing distal radial fracture. Bony alignment demonstrating no significant interval changes. Bony details are limited by overlying cast. Stable degenerative changes at the carpometacarpal articulation of the thumb. RAD/Wrist min 3 Views IMPRESSION: Healing distal radial fracture without interval changes in alignment. Bony details are limited by overlying cast. Electronically Signed: Wing Haro DO at 23:33 EST Tel [phone], Service support ,
== END ==
PROVIDERS: Family Provider Internal Medicine; PCP Internal Medicine; Referring Provider Physician Assistant; Visit Provider Physician Assistant
DX: S52.502A Unspecified fracture of the lower end of left radius, initial encounter for closed fracture (principal)
CPT/HCPCS: 73110

== ENCOUNTER → 2019-07-29 15:35 | Outpatient (CLI) | payer MEDICAID, SELFPAY ==
[2019-07-16 14:40] VITALS: BMI 25.0
[2019-07-29 16:25] LABS: Amphetamine Urine VISTA NEGATIVE (<1000 ng/mL); Barbiturate Urine VISTA NEGATIVE (< 200 ng/mL); Benzodiazepine Urine VISTA NEGATIVE (< 200 ng/mL); Cocaine Urine VISTA NEGATIVE (< 300 ng/mL); Ecstacy Urine VISTA NEGATIVE (< 500 ng/mL); Methadone Urine VISTA NEGATIVE (< 300 ng/mL); PCP Urine VISTA NEGATIVE (< 25 ng/mL); THC Urine VISTA NEGATIVE (< 50 ng/mL); Vista UDS pH Range 6
== END ==
PROVIDERS: Family Provider Internal Medicine; PCP Internal Medicine; Referring Provider Anesthesiology Pain Medicine; Visit Provider Anesthesiology Pain Medicine
DX: F11.20 Opioid dependence, uncomplicated (principal)
CPT/HCPCS: 80307

== ENCOUNTER → 2019-07-31 08:37 | Outpatient (CLI) | payer MEDICAID, SELFPAY ==
[2019-07-16 14:40] VITALS: BMI 25.0
--- NOTE | 2019-07-31 08:45 | RAD_ITS ---
STUDY: X-RAY - LEFT WRIST REASON FOR EXAM: Female, 63 years old. CAST REMOVED TODAY, F/U TECHNIQUE: 3 view(s) of the wrist were obtained. COMPARISON: 07/16/2019 FINDINGS: Cast material has been removed. Distal radial fracture with partial healing grossly similar. Normal radiocarpal articulation. Normal distal radioulnar articulation. Normal carpal bones. Normal carpal articulations. There is degenerative arthrosis of the carpometacarpal articulation of the thumb. Normal second through fifth carpometacarpal articulations. Normal visualized metacarpal bones. The soft tissue structures are unremarkable. RAD/Wrist min 3 Views IMPRESSION: 1. Removal of cast. Stable alignment of distal radial fracture with partial healing. Electronically Signed: Steve Archer MD (Bro[place]) at 12:35 EST , Service support ,
== END ==
PROVIDERS: Family Provider Internal Medicine; PCP Internal Medicine; Referring Provider Physician Assistant; Visit Provider Physician Assistant
DX: S52.502A Unspecified fracture of the lower end of left radius, initial encounter for closed fracture (principal)
CPT/HCPCS: 73110

== ENCOUNTER 2019-08-26 13:00 | Outpatient (RCR) | payer MEDICAID, SELFPAY ==
[2019-07-31 09:03] VITALS: BMI 25.0
--- NOTE | 2019-08-04 12:52 | HP.OTEVAL ---
Patient's Visit Information KRISTI MONTEIRO is a 63 year old F, referred to Occupational Therapy by LUISA Dixon, with a diagnosis of L distal radius extra articular fx. Date of Evaluation: 08/04/19 Occupational Therapist: Casi Knapp - Subjective Subjective: Pt seen for occupational therapy evaluation for L distal radius extra articular fx that occurred from a fall when she tripped over a rug and fell on the steps in June 2019. Pt was in short hard cast for 6 wks and now wearing cock up splint as needed for 1-2 wks while working on increasing her activity of L hand/wrist and ROM. Pt is R hand dominent. Pt indep w/ BADL's and requires assist with opening variety of containers. Pt states numbness and tingling L hand up to elbow that started when she broke her L distal radius. Pt states no pain at rest L UE. Hobbies simran. Pt states no pain at rest but occassionally has pain with movement of L wrist. - Objective Objective/Observation: limited strength and ROM of L wrist secondary to being in cast for 6 wks - ROM Wrist: L 55'/53' R 50'/40' - Strength Forgeman Helper: L 25#, R 35# Lateral Pinch: L 4#, R 5# Tripod Pinch: L 4#, R 6# - Edema Other: Slight edema L wrist - Sensation Sensation Comments: Numbness and tingling L hand finger tips back to elbow. Monofilament L digit 4 and 5 #3.22, L digitis 1,2, 3, # 3.61 - Quick DASH-Disab of Arm,Shoulder& Hand Quick DASH Score: 34.0900 - Goals Goal:: Pt will progress w/ L sales operations coordinator strength by 10# to assist with opening containers independently by d/c from OT services. Pt will progress w/ L tripod pinch by 2# to assist w/ functional living tasks independently by d/c from OT services. Goal:: Pt will progress w/ L wrist flexion by 15' to assist w/ BADL tasks independently by d/c from OT services. Goal:: Pt will demo no pain greater than 1/10 with movement of L wrist by d/c from OT services Goal:: Pt will be educated on joint protection/energy conservation techniques w/ good understanding and demo 75% x. Goal:: Pt will be educated on appropriate L UE HEP with 100% understanding and demo by d/c from OT services. - Rehabilitation General Assessment: Pt demo decreased strength and ROM of L UE after L distial radius fx indicating a need for skilled OT interventions to increase her L hand/wrist strength and AROM to assist w/ functional living tasks as well as educate on L UE HEP and joint protection with good understanding 1-2x/wk x 4-6wks Rehabilitation Potential: Good - Anticipated Interventions Anticipated Interventions: A/AAROM/PROM, Strengthening, Edema Control, Massage, Modalities, Orthoses, Joint Protection/Energy Conservation, Ergonomic Education, Fine Motor Coord/Dash, ADL Training, Education re assistive Equipment, Education re Diagnosis, Education re Self Massage Techniques, Education re Correct Donning Tech,Care&Wearing Sched Comp Garments, Home Program - Visit Plan Frequency: 1-2x /Week Duration: 4-6 Weeks General Plan: OT interventions to increase her L hand/wrist strength and AROM to assist w/ functional living tasks as well as educate on L UE HEP and joint protection with good understanding 1-2x/wk x 4-6wks TEXT: Thank you for the opportunity to evaluate your patient. For Medicare and Medicare HMO plans, please review the plan of care and approve it. It will need to be FAXED BACK to us at [phone] for Medicare purposes. Please let me know if there are questions or concerns regarding this plan of care. Physician Signature: Date:
--- NOTE | 2019-08-26 14:02 | HP.OTDCSUM_ITS ---
HP - OT D/C Summary It has been my pleasure to treat KRISTI MONTEIRO under orders from LUISA Dixon, for the diagnosis of L distal radius extra articular fx for a total of 8 visit(s). Please see the following information for a summary of their discharge status. - Overall Improvement % Improvement: 80 - Objective Objective/Function: Initially L fire dispatcher strength 43#, AROM L wrist 51/51'. After arm exercises and moist heat : L fire dispatcher strength 45#. L tripod pinch 7#. AROM L wrist 60'/70' - Goals Patient Goals: Regain Strength, Decrease Pain, Decrease Swelling/Stiffness, Improve Fine Motor Skills, Use Hand/Wrist/Arm Normally Again, Decrease Tingling/Numbness, Increase ROM, Be More Independent in ADLS, Resume Former Household Responsibilities (Cooking,Cleaning,Yard, etc.), Resume Hobbies Goal:: Pt will progress w/ L fire dispatcher strength by 10# to assist with opening containers independently by d/c from OT services. Pt will progress w/ L tripod pinch by 2# to assist w/ functional living tasks independently by d/c from OT services. Goal:: Pt will progress w/ L wrist flexion by 15' to assist w/ BADL tasks independently by d/c from OT services. Goal:: Pt will demo no pain greater than 1/10 with movement of L wrist by d/c from OT services Goal:: Pt will be educated on joint protection/energy conservation techniques w/ good understanding and demo 75% x. Goal:: Pt will be educated on appropriate L UE HEP with 100% understanding and demo by d/c from OT services. - Plan Plan: d/c OT POC - D/C Information Discharge Comments: Pt has made great progress with OT goals. Pt has progressed w/ L hand fire dispatcher strength from 25# to 45#. Pt has progressed with L tripod strength from 4# to 7#. Pt states no pain with movement greater than 1/10 L UE. Pt has progressed with AROM L wrist 60'/70'. Pt educated on L UE HEP with good understanding as well as joint protection technqiues. Pt feels she is 80% better and demo good understanding of HEP. No longer requires skilled OT services. D/C OT POC. If there are questions or concerns regarding this patient's occupational therapy, please fell free to call me at [phone]. Thank you for the referral of this patient. Sincerely, Casi Knapp
== END 2019-08-26 19:00 | disposition home or self-care (01) ==
LOC: OT 13:00
PROVIDERS: Family Provider Internal Medicine; PCP Internal Medicine; Referring Provider Physician Assistant; Visit Provider Physician Assistant
DX: S52.552D Other extraarticular fracture of lower end of left radius, subsequent encounter for closed fracture with routine healing (principal)
CPT/HCPCS: 97110; 97165; 97166; 97530

== ENCOUNTER → 2019-08-26 15:32 | Outpatient (CLI) | payer MEDICAID, SELFPAY ==
[2019-08-20 13:56] VITALS: BMI 25.0
--- NOTE | 2019-08-26 15:36 | RAD_ITS ---
STUDY: X-RAY - PELVIS AND LEFT HIP REASON FOR EXAM: Female, 63 years old. LEFT SIDE HIP PAIN, NO INJURY TECHNIQUE: 3 views of the pelvis and hip. COMPARISON: None. FINDINGS: There is a total right hip replacement. The left hip joint is normal. Mild degenerative changes involving the lower lumbosacral spine and the sacroiliac joints. There are no acute fractures. A battery pack is seen projecting over the right iliac bone with a lead wire from it projecting over the sacrum RAD/HIP, UNI W/ Pelvis 2-3 Views IMPRESSION: No fracture. A total right hip replacement. The left hip joint is normal. Electronically Signed: Poncho Luther MD at 2:07 EST Tel , Service support ,
== END ==
PROVIDERS: PCP Internal Medicine; Referring Provider Anesthesiology Pain Medicine; Visit Provider Anesthesiology Pain Medicine
DX: M25.552 Pain in left hip (principal); S52.552D Other extraarticular fracture of lower end of left radius, subsequent encounter for closed fracture with routine healing
CPT/HCPCS: 73502; 97110; 97530

== ENCOUNTER → 2019-09-18 | Outpatient (CLI) | payer MEDICAID, SELFPAY ==
[2019-03-18 08:21] VITALS: BMI 24.3
[2019-09-07 14:02] VITALS: BMI 25.0
[2019-09-18 09:18] VITALS: BP 139/82; PULSE 78; RESP 16; TEMP 37.1; BMI 25.2
[2019-09-18] MEDS: MethylPREDNISolone 125 MG/2 ML Vial 100 MG IV (09:29)
[2019-09-18] MEDS: DiphenhydrAMINE 50 MG/ML Syringe 25 MG IV (09:36)
[2019-09-18] MEDS: Ocrelizumab 600mg Infusion 40 MG IV (10:05)
[2019-09-18 15:01] VITALS: BP 135/76; RESP 16
== END | disposition home or self-care (01) ==
LOC: MEDOUTP 09:05
PROVIDERS: Family Provider Internal Medicine; PCP Internal Medicine; Referring Provider Internal Medicine; Visit Provider Clinical Nurse Specialist Acute Care
DX: G35 Multiple sclerosis (principal)
CPT/HCPCS: 96365; 96366; 96375; J7040; J7050; A4216; J2350

== ENCOUNTER 2019-10-21 17:00 | Outpatient (RCR) | payer MEDICAID, SELFPAY ==
[2019-09-25 13:50] VITALS: BMI 25.2
--- NOTE | 2019-10-09 13:31 | HP.PTEVAL_ITS ---
Patient's Visit Information KRISTI MONTEIRO is a 63 year old F referred to Physical Therapy by JOSH Owen with a diagnosis of MS. Date of Evaluation: 10/09/19 Physical Therapist: Blue Quintero, BARBT, OCS, CSCS - Visit Plan Frequency: 2x /Week Duration: 2 Months Plan: 2x/week for 4-8 weeks... Gave HS and gastroc stretches today. work to HEP on the following: postural and core strength. hip and LE strength. Also work on steps, trasnfer off floor, functional strength and balance with VOR adn foam and weight shifts. Will be 30 minutes at first adn progress to 60 minutes. - Subjective Findings: Need to wrok on balance and strength. Falling and getting up is hard. Saw MS doctor adn they think she needs to be stronger. Currently not doing any regular exercises. Falls every two weeks. Turning too quick can be the preciptating factor or weakness with overdoing it. Can get up with a struggle with furnitures help. Pain in back is OK as she just got an injection and that has helped tremendously. Sleeps not great but normal for her. Uses cane to get around outdoors but not at home as it gets in the way. Has wh walker but does not need it right now, hard to get in and out of the car. Live with partner who works. Steps to get into house and basement with railings and is doing them but feels weak and tired can be prohibiting. Basic ADLS good with shower chair, fatiguing. - Pain LBP Pain Intensity (Out of 10): 1 Pain Intensity Range: 0, 1 - Objective Walks cane in R UE I 300 feet. Steps rec with one rail up and two to descend poo ecentric control. no cane can walk 300 feet but wide ADRIANA adn lots of UE balance techniques with challenges. Very tired adn mild SOB after steps but no LOB and no rest needed 300 feet plus 4 stairs. Multiple attempts up from chair without UE. LE strength L 4- adn R 4/5 knees adn ankles, hips 3+ L abd ext adn 4- R. HS tight at -30 90/90 test, gastrocs tight at 0 DF. Sensation WNL to gross light touch in LE. LE AROM WFL, quads tight also. UE AROM WFL strength 4+/5 in all shoulder elbow wrist movements. reflexes 2/3 bi, tri, patella, ach illes. VOR walking is challenging for patient. - Balance Scores Functional Gait Assessment Score: 22 % Disability: 26.6700 - Goals Goal 1:: up off floor without assist mod I easily and consistently Goal Time Frame: 6-8 Weeks Goal 2:: I approp EHp to minimzie future problems with flex and strength. Goal Time Frame: 4-6 Weeks Goal 3:: LEFS < 40 % disabillity Goal Time Frame: 6-8 Weeks Goal 4:: Pt feel 50% stronger with mobility Goal Time Frame: 4-6 Weeks - Rehabilitation Potential Physical Therapy Diagnosis: MS related mobility deficits. Rehabilitation Potential: Fair - Anticipated Interventions Patient/Client Instruction: Educate patient on: Condition, Plan of Care For the Purpose of:: To improve muscle performance and motor function, To increase tolerance to activity/condition/position, To improve ability of physical actions for home/community/work/leisure Therapeutic Exercise to Include: Strength training, Balance training, Postural training, Flexibilty training, Gait and locomotor training, Passive ROM, Active ROM For the Purpose of:: To improve muscle performance and motor function, To increase tolerance to activity/condition/position, To improve endurance, To improve balance Thank you for the opportunity to evaluate your patient. For Medicare and Medicare HMO plans, please review the plan of care and approve it. It will need to be FAXED BACK to us at [phone] for Medicare purposes. For Medicare only, by signing this I certify the plan of care. Please let me know if there are questions or concerns regarding this plan of care. Physician Signature: Date:
--- NOTE | 2020-01-05 14:41 | HP.PT.NRP ---
KRISTI MONTEIRO was seen in my office for initial evaluation on 10/09/19. The following Plan of Care was established for this patient: Initial Frequency: 2x /Week Initial Duration: 2 Months Patient/Client Instruction: Educate patient on: Condition, Plan of Care For the Purpose of:: To improve muscle performance and motor function, To increase tolerance to activity/condition/position, To improve ability of physical actions for home/community/work/leisure Therapeutic Exercise to Include: Strength training, Balance training, Postural training, Flexibilty training, Gait and locomotor training, Passive ROM, Active ROM For the Purpose of:: To improve muscle performance and motor function, To increase tolerance to activity/condition/position, To improve endurance, To improve balance This patient was last seen in our office 10/21/19. Pertinent comments regarding their Physical therapy will appear below: Pt seen 5 visits of POC. She cancelled further due to rodriguez virus. I spoke to her in late November and she stated she would call if needed to return by one month and otherwise would come back through doctor someday as needed. at thiis point, it has been over a month and I will disocntinue due to nonattendance. At this point I will be discontinuing this patient from physical therapy. I would be happy to see this patient again in the future if found appropriate by the physician. Thank you! Blue Quintero, DPT, OCS, CSCS
== END 2019-10-21 19:00 | disposition home or self-care (01) ==
LOC: PT 17:00
PROVIDERS: PCP Internal Medicine; Visit Provider Clinical Nurse Specialist Acute Care
DX: G35 Multiple sclerosis (principal)
CPT/HCPCS: 97110; 97162

== ENCOUNTER → 2019-12-17 | Outpatient (CLI) | payer MEDICAID, SELFPAY ==
[2019-12-17 14:33] VITALS: BMI 26.7
[2019-12-17 17:32] LABS: ALB/GLOB Ratio 1.4 RATIO (0.9-2.4); AST(SGOT) 16 U/L (15-37); Alanine Aminotransfer ALT/SGPT 25 U/L (13-56); Albumin, Serum 4.1 g/dL (3.2-5.0); Alkaline Phosphatase 70 U/L (45-117); Anion Gap 4 (5-15); BUN 31 mg/dL (7-18); BUN/Creat Ratio 47.3 RATIO (10-20); Calcium,Total 9.1 mg/dL (8.5-10.1); Chloride 108 mmol/L (98-107); Creatinine, Serum 0.66 mg/dL (0.55-1.02); EST Glomerular Filtration Rate 97 mL/min (>60); Est Glom Filt Rate - Afr Amer 118 mL/min (>60); Glucose 110 mg/dL (74-106); Potassium 4.1 mmol/L (3.5-5.1); Protein, Total 7.1 g/dL (6.4-8.2); Sodium Level 142 mmol/L (136-145)
[2019-12-17 17:35] LABS: Vitamin D,25 Hydroxy 39.7 ng/mL
[2019-12-18 06:55] LABS: PTHIN 28.3 pg/mL (18.4-80.1)
== END | disposition home or self-care (01) ==
LOC: LABSPEC 16:33
PROVIDERS: PCP Internal Medicine; Referring Provider Internal Medicine Endocrinology, Diabetes & Metabolism; Visit Provider Internal Medicine Endocrinology, Diabetes & Metabolism
DX: E55.9 Vitamin D deficiency, unspecified (principal); M81.0 Age-related osteoporosis without current pathological fracture
CPT/HCPCS: 80053; 82306; 83970

== ENCOUNTER → 2019-12-30 08:33 | Outpatient (CLI) | payer MEDICAID, SELFPAY ==
[2019-09-25 13:50] VITALS: BMI 25.2
[2019-12-17 16:43] VITALS: BMI 25.2
[2019-12-30] MEDS: Zoledronic Acid 5 MG 100 ML 300 MG IV (10:07)
[2019-12-30] MEDS: 0.9% NaCl IVPB Med Flush (250 mL) 15 ML IV (10:08)
[2019-12-30] MEDS: 0.9% NaCl Peripheral Flush Adult/Peds IV (10:08)
[2019-12-30 10:13] VITALS: BP 132/70; PULSE 74; RESP 16; TEMP 37.2; O2SAT 98; BMI 25.0
[2019-12-30 10:42] VITALS: BP 132/70; PULSE 74; RESP 16; TEMP 37.2; O2SAT 98
--- NOTE | 2019-12-30 11:57 | NEURO_ITS ---
NCS and/or EMG Patient Report Ordering Doctor: Frank Allen DATE OF SERVICE: 12/30/19 Marcy Adamson is a 64 year old female who presents for electrodiagnostic testing of the left upper limb. She reports numbness and tingling in the left hand. Electrodiagnostic findings: Left median motor nerve demonstrates prolonged d istal latency with reduced amplitude and reduced conduction velocity. Normal left ulnar motor response, including conduction across the elbow. Prolonged left median F-wave. Prolonged left median palmar latency. Left median sensory response at the wrist is not obtainable. Normal left ulnar and radial sensory responses. On needle EMG, all muscles tested in the left upper limb showed no evidence of denervation with normal motor unit action potentials. Electrodiagnostic impression: This is an abnormal study in the left upper limb. 1. Electrodiagnostic findings demonstrate left-sided median mononeuropathy. This is consistent with a severe left carpal tunnel syndrome. If there are any further questions, please do not hesitate to contact me.
== END ==
LOC: PSN 08:34 → MEDOUTP 09:48
PROVIDERS: PCP Internal Medicine; Referring Provider Physician Assistant; Visit Provider Physician Assistant
DX: M81.0 Age-related osteoporosis without current pathological fracture (principal); G56.02 Carpal tunnel syndrome, left upper limb; S52.592D Other fractures of lower end of left radius, subsequent encounter for closed fracture with routine healing
CPT/HCPCS: 96365; 95886; 95910; J7050; A4216; J3489

== ENCOUNTER → 2020-02-11 | Outpatient (CLI) | payer MEDICAID, SELFPAY ==
[2019-09-18 09:18] VITALS: BMI 25.2
[2020-01-18 12:23] VITALS: BMI 25.0
[2020-02-11] MEDS: MethylPREDNISolone 125 MG/2 ML Vial 100 MG IV (09:20)
[2020-02-11] MEDS: 0.9% NaCl IVPB Med Flush (250 mL) 15 ML IV (09:20)
[2020-02-11] MEDS: 0.9% NaCl Peripheral Flush Adult/Peds IV (09:20)
[2020-02-11] MEDS: DiphenhydrAMINE 50 MG/ML Syringe 25 MG IV (09:21)
[2020-02-11 09:25] VITALS: BP 101/83; PULSE 75; RESP 16; TEMP 36.1
[2020-02-11] MEDS: Ocrelizumab 600mg Infusion 40 MG IV (09:56)
[2020-02-11 15:16] VITALS: BP 124/59; PULSE 78; TEMP 36.7
== END | disposition home or self-care (01) ==
LOC: MEDOUTP 09:02
PROVIDERS: PCP Internal Medicine; Referring Provider Clinical Nurse Specialist Acute Care; Visit Provider Clinical Nurse Specialist Acute Care
DX: M81.0 Age-related osteoporosis without current pathological fracture (principal)
CPT/HCPCS: 96365; 96366; 96375; J7040; J7050; A4216; J2350

== ENCOUNTER → 2020-05-09 | Outpatient (CLI) | payer MEDICAID, SELFPAY ==
--- NOTE | 2020-05-09 10:24 | MRI_ITS ---
STUDY: MRI BRAIN WITHOUT CONTRAST REASON FOR EXAM: Female, 64 years old. memory impairment, MS TECHNIQUE: Standardized multiplanar fat and water weighted pulse sequences were obtained. COMPARISON: 05/20/2019 FINDINGS: There is moderate cerebral atrophy with widening of the extra-axial spaces and ventricular dilatation. There are multiple white matter hyperintensities, distributed throughout the deep white matter tracts of the cerebral hemispheres, consistent with moderate chronic white matter ischemic changes. There is no evidence for recent intracranial ischemia or other cause of cytotoxic edema on diffusion weighted imaging (DWI). Normal bilateral basal ganglia. Normal thalami. There is no extra-axial fluid accumulation. Normal flow voids within the major intracranial circulation suggesting patency by spin echo criteria. Normal sella turcica, pituitary gland, infundibular stalk, optic chiasm and hypothalamus. Normal tectal plate and pineal gland. Normal midbrain, casey and medulla. Normal cerebellum. Normal basal cisterns. Normal bilateral temporal bones. Normal bilateral internal auditory canals. No demonstrated orbital abnormality, within the constraints of a routine brain study. Normal visualized paranasal sinuses. Normal calvarium and skull base. Normal visualized soft tissue structures. Normal visualized upper cervical spine. MRI/Brain without Contrast IMPRESSION: Involutional changes of the brain, as described above. Electronically Signed: Martín Pina MD at 12:59 EDT Tel , Service support ,
== END | disposition home or self-care (01) ==
LOC: MRI 10:20
PROVIDERS: PCP Internal Medicine; Referring Provider Clinical Nurse Specialist Acute Care; Visit Provider Clinical Nurse Specialist Acute Care
DX: R41.3 Other amnesia (principal)
CPT/HCPCS: 70551

== ENCOUNTER 2020-06-08 14:23 | Emergency (ER) | payer MEDICAID, SELFPAY ==
[2020-06-08 14:24] VITALS: BP 151/79; PULSE 73; RESP 16; TEMP 36.4; O2SAT 99; BMI 27.4
--- NOTE | 2020-06-08 14:34 | RAD_ITS ---
STUDY: X-RAY - UNILATERAL RIBS ( RIGHT ) WITH CHEST REASON FOR EXAM: Female, 64 years old. AXILLARY RIB PAIN, FALL TECHNIQUE - RIBS: 4 view(s) of the ribs. TECHNIQUE - CHEST: Frontal view COMPARISON: None. FINDINGS - RIBS: Old right 6th and 7th rib fractures. FINDINGS - CHEST: The lungs are clear and expanded. There is no demonstrated pleural abnormality. Normal size heart. Normal mediastinum and dawood. Normal visualized pulmonary arteries. Normal visualized aortic arch and descending thoracic aorta. Degenerative changes and scoliosis of the thoracic spine. Old right rib fractures. Hiatal hernia. RAD/Ribs Uni Min 3V w/PA Chest IMPRESSION: RIBS: Old right rib fractures. CHEST: Hiatal hernia. Electronically Signed: Wing Haro DO at 16:29 EDT Tel [phone], Service support ,
--- NOTE | 2020-06-08 14:34 | CT_ITS ---
STUDY: CT BRAIN WITHOUT CONTRAST REASON FOR EXAM: Female, 64 years old. SLIPPED AND FELL ON WET LEAVES, LAC TO RT EYEBROW, ABRASIONS TO FACE. NO LOC. PT NOT ON THINNERS. RADIATION DOSAGE (If Supplied By Facility): CTDIvol = ( 44.99 ) mGy, DLP = ( 829.85 ) mGycm TECHNIQUE: Transaxial CT imaging of the brain was performed without administration of intravenous contrast material. Individualized dose optimization techniques were used for this CT. COMPARISON: Comparison is made with prior study dated 04/12/2019. FINDINGS: Normal soft tissue structures. Normal calvarium. There is mild cerebral atrophy with widening of the extra-axial spaces and ventricular dilatation. There are areas of decreased attenuation within the white matter tracts of the supratentorial brain, consistent with microvascular disease changes. Normal basal ganglia and thalami. Normal brainstem. Normal cerebellum. There is no intracranial hemorrhage. There are no findings of an acute ischemic infarction. Normal visualized paranasal sinuses. CT/Brain/Head without Contrast IMPRESSION: Chronic involutional changes of the brain. Electronically Signed: Manohar Drummond, at 15:03 EDT , Service support ,
--- NOTE | 2020-06-08 14:34 | RAD_ITS ---
STUDY: X-RAY - RIGHT WRIST REASON FOR EXAM: Female, 64 years old. FALL, PAIN TECHNIQUE: 3 view(s) of the wrist were obtained. COMPARISON: None. FINDINGS: Normal visualized distal ulna. Previous ORIF of the radius. Normal distal radioulnar articulation. Resorption or resection of the trapezium. There is irregularity of the scaphoid possibly related degenerative erosive changes and/or old injury. Previous ORIF of the fifth metacarpus. Degenerative changes at the carpal articulations. Normal second through fifth carpometacarpal articulations. This irregularity at the base of the first metacarpus possibly related to erosive changes. Mild soft tissue swelling at the wrist. RAD/Wrist min 3 Views IMPRESSION: Degenerative changes as noted of the wrist. Status post ORIF of the distal radius and fifth metacarpus. Soft tissue swelling at the wrist. Electronically Signed: Wing Haro DO at 16:32 EDT Tel [phone], Service support ,
--- NOTE | 2020-06-08 14:37 | ED.VIS.GEN ---
History of Present Illness Chief Complaint: Fall Informant: Patient Narrative: Patient was walking when she slipped on wet leaves. She fell striking her head on the concrete causing laceration. No loss of consciousness. She notes swelling and abrasion to the medial dorsum of the right wrist. She notes pain to the right knee and right lower anterior ribs. She denies being on a blood thinner. Last tetanus was within the past few years - Past Medical History (1) DDD (degenerative disc disease), lumbar Status: Chronic (2) Depression Status: Chronic (3) History of tongue cancer Status: Chronic (4) Hypertension Status: Chronic (5) Multiple sclerosis Status: Chronic (6) Osteoarthritis Status: Chronic Past Medical History - Allergies and Home Meds Allergies/Adverse Reactions: Allergies alendronate sodium [From Fosamax] Adverse Reaction (Verified 06/08/20 14:28) nausea/vomiting lisinopril Adverse Reaction (Verified 06/08/20 14:28) Other COUGHING Primary Care Physician: Susanna Sanderson MD [Primary Care Provider] - (Stitches should be removed in 5 to 7 days) Prior records reviewed: Yes Surgical History: noncontributory, total hip arthroplasty, - - Carpal tunnel surgery. foot, tongue surgery Smoking Status: Former smoker Drugs: None - Family History Maternal Family History: Family History (Last Reviewed 12/17/19 @ 16:[address] rBet Clement MD) Unknown Alcoholism Arthritis Breast cancer Colon cancer Cancer Psychiatric care Family History: Reports: - Paternal Family History: Family History (Last Reviewed 12/17/19 @ 16:[address] Bret Clement MD) Unknown Alcoholism Arthritis Breast cancer Colon cancer Cancer Psychiatric care Family History: Reports: No pertinent history Review of Systems General: Denies: Chills, Fever, Sweats Eyes: Denies: Visual changes - bilaterally, Diplopia ENT: Denies: Rhinorrhea, Sore throat Cardiovascular: Denies: Chest pain, Palpitations Respiratory: Denies: Dyspnea, Cough, Dyspnea on exertion Gastrointestinal: Denies: Abdominal pain, Nausea, Vomiting, Diarrhea, Melena, Hematochezia Genitourinary: Denies: Dysuria, Hematuria, Frequency Musculoskeletal: Reports: Extremity Pain. Denies: Back pain Skin: Reports: Wounds. Denies: Rash Neurological: Reports: Headache. Denies: Weakness, Numbness Physical Exam Vital Signs/Narrative: Vital Signs Temp Pulse Resp BP Pulse Ox 06/08/20 14:24 97.5 F L 73 16 151/79 H 99 Inital Vital Signs reviewed: Yes General: Well nourished, Well developed, No Acute Distress Head: Normocephalic, Trauma - There is a 2 cm laceration to the right eyebrow. Eyes: Perrl, EOMI ENT: Moist mucous membranes, No rhinorrhea Neck: Supple, Nontender Cardiovascular: Regular rate, Regular rhythm, No murmurs Respiratory: No distress, CTA bilaterally, Chest tenderness - Right anterior mid axillary rib tenderness to palpation. Abdomen: Soft, Nontender, Nondistended, Normal bowel sounds Back: Nontender, Normal Inspection Extremities: No edema, Tenderness - Tenderness swelling and superficial abrasion to the medial dorsum of the right wrist., - - Right knee is mildly tender to palpation with mild contusion Skin: Normal color, No rash Neurological: Alert, Oriented x3, Cranial nerves II-XII grossly intact, Normal Strength, Normal Sensation Psychological: Normal affect, Normal Mood Diagnostic/Tx/Re-eval Clinical Impression(s) from Imaging Studies Brain CT 06/08/20 14:34 IMPRESSION: Chronic involutional changes of the brain. Electronically Signed: Manohar Hoda, at 15:03 EDT , Service support , - Medical Decision Making Patient received Tylenol. Wound was locally anesthetized washed with Shur-Clens and explored. A total of 4 simple erupted 5-[address] the brain was negative for fracture or hemorrhage. X-rays of the wrist and the ribs were obtained. At this point patient be discharged home instructions have sutures removed 5 to 7 days return if worsening or concerns. ED Disposition - Plan for ED Patient: Disposition: Home or Assisted Living Diagnosis: Contusion of right wrist, Contusion of rib on right side, Contusion of right knee, Facial laceration Instructions: ED SOFT TISSUE CONTUSION, ED Head Injury Adult, ED Laceration All Closures, ED CONTUSION Rib Referrals: Susanna Sanderson MD [Primary Care Provider] - (Stitches should be removed in 5 to 7 days)
--- NOTE | 2020-06-08 14:45 | RAD_ITS ---
STUDY: X-RAY - RIGHT KNEE REASON FOR EXAM: Female, 64 years old. FALL, PAIN TECHNIQUE: 4 view(s) of the knee. COMPARISON: None. FINDINGS: Normal visualized distal femur. Normal visualized proximal tibia and fibula. Normal proximal tibiofibular articulation. Minimal spurring and slight narrowing at the medial femorotibial compartment. Degenerative spurring at the lateral femorotibial compartment. Degenerative spurring and narrowing at the patellofemoral articulation. The soft tissue structures are unremarkable. RAD/Knee 4 or More Views IMPRESSION: Degenerative changes of the knee. Electronically Signed: Wing Haro DO at 16:18 EDT Tel [phone], Service support ,
[2020-06-08] MEDS: Acetaminophen 500 MG Tablet 1000 MG PO (16:18)
[2020-06-08 16:22] VITALS: BP 176/112; PULSE 73; RESP 16; O2SAT 98
== END 2020-06-08 17:15 | disposition home or self-care (01) ==
PROVIDERS: Emergency Provider Emergency Medicine; PCP Internal Medicine
DX: S01.111A Laceration without foreign body of right eyelid and periocular area, initial encounter (principal); S60.211A Contusion of right wrist, initial encounter; S20.211A Contusion of right front wall of thorax, initial encounter; S80.01XA Contusion of right knee, initial encounter; W01.0XXA Fall on same level from slipping, tripping and stumbling without subsequent striking against object, initial encounter; Y93.01 Activity, walking, marching and hiking; Y92.89 Other specified places as the place of occurrence of the external cause; Y99.8 Other external cause status; I10 Essential (primary) hypertension; M11.9 Crystal arthropathy, unspecified; Z87.891 Personal history of nicotine dependence
CPT/HCPCS: 12011; 70450; 71101; 73110; 73564; 99282

== ENCOUNTER → 2020-09-14 15:49 | Outpatient (CLI) | payer MEDICAID, SELFPAY ==
--- NOTE | 2020-09-14 16:01 | EKG12_ITS ---
Test Reason : PRE-OP Blood Pressure : / mmHG Vent. Rate : 068 BPM Atrial Rate : 068 BPM P-R Int : 184 ms QRS Dur : 108 ms QT Int : 418 ms P-R-T Axes : 018 -20 047 degrees QTc Int : 444 ms Normal sinus rhythm Voltage criteria for left ventricular hypertrophy Abnormal ECG Confirmed by MAIDA SUMMERS, PHYLLIS ([id number]), editor in chief MANDA WEBB ([id number]) on 09/15/2020 9:54:22 AM Referred By: Jesus Marino Confirmed By:PHYLLIS BEY MD
[2020-09-14 18:26] LABS: Hematocrit 35.7 % (37-47); Hemoglobin 10.6 g/dL (12.0-15.0); Mean Corp Hgb Conc 29.7 g/dL (32-36); Mean Corpuscular Hgb 22.9 pg (27.0-32.0); Mean Corpuscular Volume 77.3 fL (81-99); Mean Platelet Vol. 9.6 fl (6.2-12.0); Platelet Count 448 K/mm3 (150-450); RBC Distribution Width SD 52.4 fl (35.1-43.9); Red Blood Count 4.62 M/mm3 (4.2-5.4); White Blood Count 4.3 K/mm3 (4.4-11.0)
[2020-09-14 18:52] LABS: Anion Gap 5 (5-15); BUN 20 mg/dL (7-18); BUN/Creat Ratio 32.6 RATIO (10-20); Chloride 108 mmol/L (98-107); Creatinine, Serum 0.61 mg/dL (0.55-1.02); EST Glomerular Filtration Rate 105 mL/min (>60); Est Glom Filt Rate - Afr Amer 127 mL/min (>60); Glucose 95 mg/dL (74-106); Potassium 3.8 mmol/L (3.5-5.1); Sodium Level 142 mmol/L (136-145)
== END ==
PROVIDERS: PCP Internal Medicine; Referring Provider Otolaryngology; Visit Provider Otolaryngology
DX: Z01.812 Encounter for preprocedural laboratory examination (principal); Z11.59 Encounter for screening for other viral diseases
CPT/HCPCS: 36415; 80048; 85027; 87635; 93005; C9803; U0003

== ENCOUNTER → 2020-09-19 | Outpatient (CLI) | payer MEDICAID, SELFPAY ==
--- NOTE | 2020-09-19 08:20 | LES_PTH ---
PATIENT: KRISTI MONTEIRO LOC: [facility] U#:[id number] AGE/SX: 64/F ROOM: RE09/19/[address]: Dr. Jesus Marino MD : [id number] BED: DIS: 09/19/2020 SPEC #: [id number] RECD: 09/19/20 14:52 STATUS: MATIAS RETeofilo #: [id number] GUI: 09/19/20 08:[address]: Jesus Marino DEPT: SURGICAL PATHOLOGY RECD BY: Deepika Lay ENTERED: 09/20/20 07:14 SP TYPE: Lesion OTHR DR: Dr. 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 Special stain for fungi is positive for organisms in the superficial epithelial layers (yeast and pseudohyphae, consistent with Linda species); matched control is appropriate. Focal hyperkeratosis and parakeratosis. Negative for malignancy. MANSOOR:kentrell 09/21/2020 COMMENT Correlation with clinical findings and appropriate follow up are necessary. MICROSCOPIC DESCRIPTION Slides are reviewed. GROSS DESCRIPTION Received is one container labeled with the patient's name and not further designated. The specimen consists of a piece of saucedo mucosal tissue measuring 1 x 0.5 cm and up to 0.3 cm in thickness. The specimen is inked, serially sectioned and submitted entirely in one cassette. / MANSOOR:kentrell 09/20/20 TC:2 CPT: 54281, 87627
== END | disposition home or self-care (01) ==
LOC: LABSPEC 15:18
PROVIDERS: PCP Internal Medicine; Referring Provider Otolaryngology; Visit Provider Otolaryngology
DX: K13.21 Leukoplakia of oral mucosa, including tongue (principal)
CPT/HCPCS: 88305; 88312

== ENCOUNTER → 2020-11-11 08:46 | Outpatient (CLI) | payer MEDICAID, SELFPAY ==
[2020-11-11 09:28] VITALS: BP 121/61; PULSE 65; RESP 18; TEMP 36.4; O2SAT 95; BMI 27.4
[2020-11-11] MEDS: 0.9% NaCl IVPB Med Flush (250 mL) 15 ML IV (09:31)
[2020-11-11] MEDS: 0.9% NaCl Peripheral Flush Adult/Peds IV (09:31)
[2020-11-11] MEDS: Famotidine 20 MG Tablet PO (09:34)
[2020-11-11] MEDS: Acetaminophen 500 MG Tablet 1000 MG PO (09:34)
[2020-11-11] MEDS: MethylPREDNISolone 125 MG/2 ML Vial IV (09:37)
[2020-11-11] MEDS: DiphenhydrAMINE 50 MG/ML Syringe 25 MG IV (09:40)
[2020-11-11] MEDS: Ocrelizumab 600mg Infusion 40 MG IV (10:15)
[2020-11-11 15:27] VITALS: BP 138/104; PULSE 77; RESP 16; TEMP 36.9; O2SAT 94
== END ==
PROVIDERS: PCP Internal Medicine; Visit Provider Clinical Nurse Specialist Acute Care
DX: G35 Multiple sclerosis (principal)
CPT/HCPCS: 96365; 96366; 96375; J7040; J7050; A4216; J2350

== ENCOUNTER → 2020-12-19 13:31 | Outpatient (CLI) | payer MEDICAID, SELFPAY ==
[2020-12-19 13:11] VITALS: BMI 24.3
[2020-12-19 16:10] LABS: Vitamin D,25 Hydroxy 61.7 ng/mL
== END ==
LOC: POLAB3 13:32 → BIMLAB 13:33
PROVIDERS: PCP Internal Medicine; Visit Provider Internal Medicine Endocrinology, Diabetes & Metabolism
DX: E55.9 Vitamin D deficiency, unspecified (principal)
CPT/HCPCS: 36415; 82306

== ENCOUNTER → 2021-01-13 10:58 | Outpatient (CLI) | payer MEDICAID, SELFPAY ==
[2020-12-20 14:13] VITALS: BMI 24.3
[2021-01-13 11:10] VITALS: BP 133/56; PULSE 74; RESP 16; TEMP 36.4; O2SAT 95; BMI 24.3
[2021-01-13] MEDS: 0.9% NaCl Peripheral Flush Adult/Peds IV (11:20)
[2021-01-13] MEDS: Zoledronic Acid 5 MG 100 ML 300 MG IV (11:21)
[2021-01-13 11:43] VITALS: BP 119/58; PULSE 62; RESP 16; O2SAT 92
== END ==
PROVIDERS: PCP Internal Medicine; Referring Provider Internal Medicine Endocrinology, Diabetes & Metabolism; Visit Provider Internal Medicine Endocrinology, Diabetes & Metabolism
DX: M19.90 Unspecified osteoarthritis, unspecified site (principal)
CPT/HCPCS: 96365; A4216; J3489

== ENCOUNTER → 2021-06-20 07:49 | Outpatient (CLI) | payer MEDICAID, SELFPAY ==
[2021-06-20 08:03] VITALS: BP 111/66; PULSE 75; RESP 16; TEMP 36.3; O2SAT 100; BMI 24.3
[2021-06-20] MEDS: 0.9% NaCl Peripheral Flush Adult/Peds IV (08:05)
[2021-06-20] MEDS: Acetaminophen 500 MG Tablet 1000 MG PO (08:31)
[2021-06-20] MEDS: Famotidine 20 MG Tablet PO (08:31)
[2021-06-20] MEDS: 0.9% NaCl IVPB Med Flush (250 mL) 15 ML IV (08:33)
[2021-06-20] MEDS: MethylPREDNISolone 125 MG/2 ML Vial IV (08:33)
[2021-06-20] MEDS: DiphenhydrAMINE 50 MG/ML Syringe 25 MG IV (08:35)
[2021-06-20] MEDS: Ocrelizumab 600mg Infusion 40 MG IV (09:14)
== END ==
PROVIDERS: PCP Internal Medicine; Referring Provider Clinical Nurse Specialist Acute Care; Visit Provider Clinical Nurse Specialist Acute Care
DX: G35 Multiple sclerosis (principal)
CPT/HCPCS: 96365; 96366; 96375; J7040; J7050; A4216; J2350

== ENCOUNTER → 2021-12-18 | Outpatient (CLI) | payer MEDICAID, SELFPAY | END | disposition home or self-care (01) | LOC: BIMLAB 13:14 | PROVIDERS: PCP Internal Medicine; Visit Provider Internal Medicine Endocrinology, Diabetes & Metabolism | DX: Z00.00 Encounter for general adult medical examination without abnormal findings (principal) ==